=== PATIENT | female | born 1965 | race American Indian/Alaskan Native ===

== ENCOUNTER 2019-03-15 11:55 | Emergency (ER) | payer MEDICAID ==
--- NOTE | 2019-03-15 12:23 | Event Note ---
ED Screening Note Date of service: 03/15/19 Time: 12:13 ED Screening Note: Pt c/o "feeling bad" for 2 weeks - she reports generalized body aches, URI symptoms, including diaphoresis and in past 2-3 days she started with SOB and wheezing. No obvious fever. No hx of lung dz or cardiac dz. +tobacco smoker She has been to [facility] x 3 and [facility] x 1 for her symptoms -- She has had neg strep swabs and at [facility] at labs and CXR all of which were negative. Pt in some respiratory distress in triage with wheezing on exam. This initial assessment/diagnostic orders/clinical plan/treatment(s) is/are subject to change based on patients health status, clinical progression and re- assessment by fellow clinical providers in the ED. Further treatment and workup at subsequent clinical providers discretion. Patient/guardian urged not to elope from the ED as their condition may be serious if not clinically assessed and managed. Initial orders include: labs, cxr duoneb
[2019-03-15] MEDS ORDERED: IPRATROPIUM/ALBUTEROL SULFATE 3 ML AMPUL.NEB IH ONE (12:25)
[2019-03-15] MEDS ORDERED: methylPREDNISolone Sod Succinate 125 MG/2 ML INJ IV ONE (12:25)
--- NOTE | 2019-03-15 13:01 | XRay Report ---
CHEST 2 VIEWS INDICATION / CLINICAL INFORMATION: Shortness of breath and wheezing. COMPARISON: None available. FINDINGS: SUPPORT DEVICES: None. HEART / MEDIASTINUM: The heart size and pulmonary vasculature are normal. LUNGS / PLEURA: No significant pulmonary or pleural abnormality. No pneumothorax. ADDITIONAL FINDINGS: No significant additional findings. IMPRESSION: No acute findings. Signer Name: Francisco Javier Page MD Signed: 03/15/2019 12:56 PM Workstation Name: [id number]
[2019-03-15 13:21] LABS: Hematocrit 39.6 % (30.3-42.9); Hemoglobin 13.6 gm/dl (10.1-14.3); Mean Corpuscular HGB Conc 34 % (30-34); Mean Corpuscular Volume 95 fl (79-97); Platelet Count 240 K/mm3 (140-440); Red Blood Count 4.17 M/mm3 (3.65-5.03); Red Cell Distribution Width 13.1 % (13.2-15.2)
[2019-03-15 13:47] LABS: Alanine Aminotransferase 14 units/L (7-56); Albumin 3.8 g/dL (3.9-5); BUN/Creatinine Ratio 17; Blood Urea Nitrogen 10 mg/dL (7-17); Calcium 8.8 mg/dL (8.4-10.2); Hemolysis Index 8
[2019-03-15 13:52] VITALS: BP 135/75
[2019-03-15 14:46] LABS: Basophils % (Manual) 0 % (0.0-1.8); Platelet Estimate Consistent w Auto; RBC Morphology Normal; Total Cells Counted 100
--- NOTE | 2019-03-15 15:01 | Emergency Department Report ---
ED ENT HPI - General Chief complaint: Weakness Stated complaint: WEAKNESS/SORE THROAT Time Seen by Provider: 03/15/19 12:12 Source: patient, EMS, old records reviewed (patient brought in her discharge summary from [facility]) Mode of arrival: Ambulatory Limitations: No Limitations - History of Present Illness Initial comments: 53-year-old -Danish female presents to the emergency room for sore throat that she's had for 2 weeks. Patient has been seen by [facility] 03/03/2019. Patient was discharged on Mucinex and Medrol Dosepak which patient has not gotten filled. Patient was then seen by [facility] on 03/11/2019 and was discharged home on ibuprofen 800 mg and acetaminophen were hydrocodone 300 mg but did not fill the medication. Patient denies any fever or chills no nausea no vomiting no chest pain or shortness of breath. Onset/Timin -: week(s) Location: throat Severity scale (0 -10): 8 Consistency: intermittent Improves with: none Worsens with: none - Related Data Home Medications Medication Instructions Recorded Confirmed Last Taken Esomeprazole Magnesium [NexIUM] 40 mg PO QDAY 02/15/13 10/21/15 10/20/15 Levothyroxine [Synthroid] 75 mcg PO QAM 02/15/13 10/21/15 10/20/15 Sertraline [Zoloft] 25 mg PO QDAY 02/15/13 10/21/15 10/20/15 Previous Rx's Medication Instructions Recorded Last Taken Type Azithromycin [Zithromax Tri-Obinna] 500 mg PO QDAY #3 tablet 03/15/19 Unknown Rx Allergies Allergy/AdvReac Type Severity Reaction Status Date / Time No Known Allergies Allergy Unverified 02/15/13 09:38 ED Dental HPI - General Chief complaint: Weakness Stated complaint: WEAKNESS/SORE THROAT Time Seen by Provider: 03/15/19 12:12 Source: patient, EMS Mode of arrival: Ambulatory Limitations: No Limitations - Related Data Home Medications Medication Instructions Recorded Confirmed Last Taken Esomeprazole Magnesium [NexIUM] 40 mg PO QDAY 02/15/13 10/21/15 10/20/15 Levothyroxine [Synthroid] 75 mcg PO QAM 02/15/13 10/21/15 10/20/15 Sertraline [Zoloft] 25 mg PO QDAY 02/15/13 10/21/15 10/20/15 Previous Rx's Medication Instructions Recorded Last Taken Type Azithromycin [Zithromax Tri-Obinna] 500 mg PO QDAY #3 tablet 03/15/19 Unknown Rx Allergies Allergy/AdvReac Type Severity Reaction Status Date / Time No Known Allergies Allergy Unverified 02/15/13 09:38 ED Review of Systems ROS: Stated complaint: WEAKNESS/SORE THROAT Other details as noted in HPI Comment: All other systems reviewed and negative ED Past Medical Hx - Past Medical History Hx Hypertension: Yes Hx Congestive Heart Failure: Yes (2009) Hx GERD: Yes - Surgical History Past Surgical History?: Yes Hx Appendectomy: Yes - Social History Smoking Status: Current Some Day Smoker Substance Use Type: None - Medications Home Medications: Home Medications Medication Instructions Recorded Confirmed Last Taken Type Esomeprazole Magnesium [NexIUM] 40 mg PO QDAY 02/15/13 10/21/15 10/20/15 History Levothyroxine [Synthroid] 75 mcg PO QAM 02/15/13 10/21/15 10/20/15 History Sertraline [Zoloft] 25 mg PO QDAY 02/15/13 10/21/15 10/20/15 History Azithromycin [Zithromax Tri-Obinna] 500 mg PO QDAY #3 tablet 03/15/19 Unknown Rx ED Physical Exam - General Limitations: No Limitations General appearance: alert, in no apparent distress - Head Head exam: Present: atraumatic, normocephalic - Eye Eye exam: Present: normal appearance, PERRL, EOMI - ENT ENT exam: Present: mucous membranes moist - Expanded ENT Exam Expanded Mouth exam: Present: normal external inspection Throat exam: Positive: normal inspection. Negative: tonsillar erythema, tonsillomegaly, tonsillar exudate, R peritonsillar mass, L peritonsillar mass - Neck Neck exam: Present: normal inspection. Absent: tenderness, full ROM, lymphadenopathy - Respiratory Respiratory exam: Present: normal lung sounds bilaterally. Absent: respiratory distress - Cardiovascular Cardiovascular Exam: Present: regular rate, normal rhythm. Absent: systolic murmur, diastolic murmur, rubs, gallop - Neurological Exam Neurological exam: Present: alert, oriented X3 - Psychiatric Psychiatric exam: Present: normal affect, normal mood - Skin Skin exam: Present: warm, dry, intact, normal color. Absent: rash ED Course Vital Signs 03/15/19 03/15/19 03/15/19 12:12 13:01 13:15 Temperature 98.2 F Pulse Rate 85 Respiratory 24 Rate Blood Pressure 155/100 135/75 O2 Sat by Pulse 98 100 100 Oximetry 03/15/19 03/15/19 03/15/19 13:31 13:45 14:01 Temperature Pulse Rate Respiratory Rate Blood Pressure 135/75 135/75 135/75 O2 Sat by Pulse 100 100 99 Oximetry 03/15/19 03/15/19 03/15/19 14:15 14:29 14:31 Temperature Pulse Rate 65 56 L Respiratory 19 15 Rate Blood Pressure 135/75 135/75 O2 Sat by Pulse 100 100 95 Oximetry 03/15/19 14:45 Temperature Pulse Rate 57 L Respiratory 16 Rate Blood Pressure 135/75 O2 Sat by Pulse 94 Oximetry ED Medical Decision Making - Lab Data Result diagrams: 03/15/19 13:03 03/15/19 13:03 Laboratory Results - last 72 hr 03/15/19 03/15/19 03/15/19 13:03 13:03 13:03 WBC 7.0 RBC 4.17 Hgb 13.6 Hct 39.6 MCV 95 MCH 33 H MCHC 34 RDW 13.1 L Plt Count 240 Add Manual Diff Complete Total Counted 100 Seg Neuts % (Manual) 42.0 Band Neutrophils % 0 Lymphocytes % (Manual) 50.0 H Reactive Lymphs % (Man) 0 Monocytes % (Manual) 5.0 Eosinophils % (Manual) 3.0 Basophils % (Manual) 0 Metamyelocytes % 0 Myelocytes % 0 Promyelocytes % 0 Blast Cells % 0 Nucleated RBC % Not Reportable Seg Neutrophils # Man 2.9 Band Neutrophils # 0.0 Lymphocytes # (Manual) 3.5 Abs React Lymphs (Man) 0.0 Monocytes # (Manual) 0.4 Eosinophils # (Manual) 0.2 Basophils # (Manual) 0.0 Metamyelocytes # 0.0 Myelocytes # 0.0 Promyelocytes # 0.0 Blast Cells # 0.0 WBC Morphology Not Reportable Hypersegmented Neuts Not Reportable Hyposegmented Neuts Not Reportable Hypogranular Neuts Not Reportable Smudge Cells Not Reportable Toxic Granulation Not Reportable Toxic Vacuolation Not Reportable Dohle Bodies Not Reportable Pelger-Huet Anomaly Not Reportable Janeth Rods Not Reportable Platelet Estimate Consistent w auto Clumped Platelets Not Reportable Plt Clumps, EDTA Not Reportable Large Platelets Not Reportable Giant Platelets Not Reportable Platelet Satelliting Not Reportable Plt Morphology Comment Not Reportable RBC Morphology Normal Dimorphic RBCs Not Reportable Polychromasia Not Reportable Hypochromasia Not Reportable Poikilocytosis Not Reportable Anisocytosis Not Reportable Microcytosis Not Reportable Macrocytosis Not Reportable Spherocytes Not Reportable Pappenheimer Bodies Not Reportable Sickle Cells Not Reportable Target Cells Not Reportable Tear Drop Cells Not Reportable Ovalocytes Not Reportable Helmet Cells Not Reportable Beard-Mcfall Bodies Not Reportable Fillmore Rings Not Reportable Shelbina Cells Not Reportable Bite Cells Not Reportable Crenated Cell Not Reportable Elliptocytes Not Reportable Acanthocytes (Spur) Not Reportable Rouleaux Not Reportable Hemoglobin C Crystals Not Reportable Schistocytes Not Reportable Malaria parasites Not Reportable Stew Bodies Not Reportable Hem Pathologist Commnt No Sodium 140 Potassium 3.8 Chloride 107.8 H Carbon Dioxide 21 L Anion Gap 15 BUN 10 Creatinine 0.6 L Estimated GFR > 60 BUN/Creatinine Ratio 17 Glucose 89 Calcium 8.8 Total Bilirubin 0.30 AST 15 ALT 14 Alkaline Phosphatase 128 Troponin T < 0.010 Total Protein 6.9 Albumin 3.8 L Albumin/Globulin Ratio 1.2 Monoscreen Negative - Radiology Data Radiology results: report reviewed Chest x-ray shows no acute findings - Medical Decision Making 53-year-old -Danish female presents to the emergency room for sore throat that she's had for 2 weeks. Patient has been seen by [facility] 03/03/2019. Patient was discharged on Mucinex and Medrol Dosepak which patient has not gotten filled. Patient was then seen by [facility] on 03/11/2019 and was discharged home on ibuprofen 800 mg and acetaminophen were hydrocodone 300 mg but did not fill the medication. Patient denies any fever or chills no nausea no vomiting no chest pain or shortness of breath. Patient has been evaluated by this provider in the emergency room as well as Dr. Winnie CERVANTES attending. We suggested to patient that she fills her medications and to follow up with her primary care provider which is a [facility]. Patient will be placed on a azithromycin 500 mg by mouth daily 3 days. She verbalized understanding Critical care attestation.: If time is entered above; I have spent that time in minutes in the direct care of this critically ill patient, excluding procedure time. ED Disposition Clinical Impression: Viral pharyngitis Disposition: DC-01 TO HOME OR SELFCARE Is pt being admited?: No Does the pt Need Aspirin: No Condition: Stable Instructions: Pharyngitis (ED) Additional Instructions: Please fill your prescriptions that was given to you by [facility] and [facility] . Follow-up which her primary care provider in the next 2-3 days his symptoms persist or gets worse. Prescriptions: Azithromycin [Zithromax Tri-Obinna] 500 mg PO QDAY #3 tablet Referrals: PRIMARY CARE, [Primary Care Provider] - 3-5 Days [facility] [Outside] - 3-5 Days
== END 2019-03-15 15:29 | disposition home or self-care (01) ==
LOC: ED 11:55
DX: J02.9 Acute pharyngitis, unspecified (principal); I11.0 Hypertensive heart disease with heart failure; I50.9 Heart failure, unspecified; K21.9 Gastro-esophageal reflux disease without esophagitis; F17.200 Nicotine dependence, unspecified, uncomplicated; Z90.49 Acquired absence of other specified parts of digestive tract; Z79.899 Other long term (current) drug therapy
CPT/HCPCS: 36415; 71046; 80053; 84484; 85007; 85025; 86308; 93005; 93010; 94640; 96374; 99284; J2930

== ENCOUNTER 2019-04-19 12:51 | Emergency (ER) | payer MEDICAID ==
[2019-04-19] MEDS ORDERED: CYCLOBENZAPRINE 10 MG TAB PO ONE (13:18)
[2019-04-19] MEDS ORDERED: predniSONE 20 MG TAB PO ONE (13:18)
[2019-04-19] MEDS ORDERED: IBUPROFEN 800 MG TAB PO ONE (13:18)
--- NOTE | 2019-04-19 13:20 | Emergency Department Report ---
ED Abdominal Pain HPI - General Chief Complaint: Back Pain/Injury Stated Complaint: LOW BACK PAIN Time Seen by Provider: 04/19/19 13:17 Source: EMS Mode of arrival: Stretcher Limitations: No Limitations - Related Data Home Medications Medication Instructions Recorded Confirmed Last Taken Esomeprazole Magnesium [NexIUM] 40 mg PO QDAY 02/15/13 10/21/15 10/20/15 Levothyroxine [Synthroid] 75 mcg PO QAM 02/15/13 10/21/15 10/20/15 Sertraline [Zoloft] 25 mg PO QDAY 02/15/13 10/21/15 10/20/15 Previous Rx's Medication Instructions Recorded Last Taken Type Cyclobenzaprine [Flexeril] 10 mg PO TID PRN #10 tablet 04/19/19 Unknown Rx Naproxen [Naprosyn] 500 mg PO BID PRN #20 tablet 04/19/19 Unknown Rx predniSONE [Deltasone] 20 mg PO DAILY #5 tablet 04/19/19 Unknown Rx Allergies Allergy/AdvReac Type Severity Reaction Status Date / Time No Known Allergies Allergy Unverified 02/15/13 09:38 ED Review of Systems ROS: Stated complaint: LOW BACK PAIN Other details as noted in HPI Comment: All other systems reviewed and negative ED Past Medical Hx - Past Medical History Hx Hypertension: Yes Hx CVA: Yes (2009 and 2013) Hx Congestive Heart Failure: Yes (2009) Hx Diabetes: No Hx Deep Vein Thrombosis: No Hx Pulmonary Embolism: No Hx GERD: Yes Hx Liver Disease: No Hx Renal Disease: No Hx of Cancer: No Hx Sickle Cell Disease: No Hx Arthritis: No Hx Headaches / Migraines: No Hx Seizures: No Hx Kidney Stones: No Hx Psychiatric Treatment: No Hx Asthma: No Hx COPD: No Hx Tuberculosis: No Hx Dementia: No Hx HIV: No - Surgical History Past Surgical History?: Yes Hx Appendectomy: Yes - Family History Family history: no significant - Social History Smoking Status: Current Every Day Smoker Substance Use Type: None - Medications Home Medications: Home Medications Medication Instructions Recorded Confirmed Last Taken Type Esomeprazole Magnesium [NexIUM] 40 mg PO QDAY 02/15/13 10/21/15 10/20/15 History Levothyroxine [Synthroid] 75 mcg PO QAM 02/15/13 10/21/15 10/20/15 History Sertraline [Zoloft] 25 mg PO QDAY 02/15/13 10/21/15 10/20/15 History Cyclobenzaprine [Flexeril] 10 mg PO TID PRN #10 tablet 04/19/19 Unknown Rx Naproxen [Naprosyn] 500 mg PO BID PRN #20 tablet 04/19/19 Unknown Rx predniSONE [Deltasone] 20 mg PO DAILY #5 tablet 04/19/19 Unknown Rx ED Physical Exam - General Limitations: No Limitations General appearance: alert, in no apparent distress - Head Head exam: Present: atraumatic, normocephalic - Eye Eye exam: Present: normal appearance - ENT ENT exam: Present: mucous membranes moist - Neck Neck exam: Present: normal inspection - Respiratory Respiratory exam: Present: normal lung sounds bilaterally. Absent: respiratory distress - Cardiovascular Cardiovascular Exam: Present: regular rate, normal rhythm. Absent: systolic murmur, diastolic murmur, rubs, gallop - GI/Abdominal GI/Abdominal exam: Present: soft, tenderness, normal bowel sounds. Absent: distended, guarding, rebound, rigid, diminished bowel sounds, hyperactive bowel sounds, hypoactive bowel sounds, organomegaly, mass, bruit, pulsatile mass - Extremities Exam Extremities exam: Present: normal inspection - Back Exam Back exam: Present: normal inspection, other (POS STRAIGHT LEG RAISE R > l) - Neurological Exam Neurological exam: Present: alert, oriented X3 - Psychiatric Psychiatric exam: Present: normal affect, normal mood - Skin Skin exam: Present: warm, dry, intact, normal color. Absent: rash ED Course Vital Signs 04/19/19 04/19/19 13:00 13:11 Temperature 97.9 F 97.9 F Pulse Rate 72 72 Respiratory 18 18 Rate Blood Pressure 115/68 Blood Pressure 115/68 [Left] O2 Sat by Pulse 98 98 Oximetry ED Medical Decision Making - Lab Data Result diagrams: 04/19/19 14:01 04/19/19 14:01 - Medical Decision Making Labs 04/19/19 04/19/19 04/19/19 14:01 14:01 Unknown WBC 5.4 RBC 4.30 Hgb 14.0 Hct 42.5 MCV 99 H MCH 33 H MCHC 33 RDW 12.9 L Plt Count 238 Sodium 140 Potassium 3.8 Chloride 109.1 H Carbon Dioxide 22 Anion Gap 13 BUN 12 Creatinine 0.7 Estimated GFR > 60 BUN/Creatinine Ratio 17 Glucose 98 Calcium 8.8 Urine Color Yellow Urine Turbidity Clear Urine pH 5.0 Ur Specific [place] 1.029 Urine Protein <15 mg/dl Urine Glucose (UA) Neg Urine Ketones Neg Urine Blood Neg Urine Nitrite Neg Urine Bilirubin Neg Urine Urobilinogen 2.0 Ur Leukocyte Esterase Neg Urine WBC (Auto) 1.0 Urine RBC (Auto) 2.0 U Epithel Cells (Auto) 1.0 Urine Bacteria (Auto) 1+ Urine Mucus Few Vital Signs 04/19/19 04/19/19 13:00 13:11 Temperature 97.9 F 97.9 F Pulse Rate 72 72 Respiratory 18 18 Rate Blood Pressure 115/68 Blood Pressure 115/68 [Left] O2 Sat by Pulse 98 98 Oximetry Critical care attestation.: If time is entered above; I have spent that time in minutes in the direct care of this critically ill patient, excluding procedure time. ED Disposition Clinical Impression: Low back pain, Radiculopathy Disposition: TO HOME OR SELFCARE Is pt being admited?: No Does the pt Need Aspirin: No Condition: Stable Instructions: Low Back Strain (ED) Additional Instructions: MEDS ORDERED TODAY ACTIVITY AND DIET TOLERATED FOLLOW UP WITH DR SMITH FOR ONGOING PAIN AND EVALUATION Referrals: PETER MOREJON MD [Primary Care Provider] - 3-5 Days BRITNI SMITH MD [Staff Physician] - 3-5 Days Time of Disposition: 15:32
[2019-04-19 14:24] LABS: Hematocrit 42.5 % (30.3-42.9); Mean Corpuscular HGB Conc 33 % (30-34); Mean Corpuscular Volume 99 fl (79-97); Platelet Count 238 K/mm3 (140-440); Red Cell Distribution Width 12.9 % (13.2-15.2)
[2019-04-19 14:39] LABS: BUN/Creatinine Ratio 17; Blood Urea Nitrogen 12 mg/dL (7-17); Calcium 8.8 mg/dL (8.4-10.2); Hemolysis Index 25
[2019-04-19 15:14] LABS: Bacteria,Urine 1+ /HPF (Negative); Bilirubin,Urine NEG (Negative); Blood,Urine NEG (Negative); Color,Urine Yellow (Yellow); Mucus,Urine FEW /HPF; Protein,Urine <15 mg/dL mg/dL (Negative)
[2019-04-19] MEDS ORDERED: ACETAMINOPHEN 500 MG TAB PO ONE (16:35)
[2019-04-19 16:56] VITALS: BP 134/96
== END 2019-04-19 16:55 | disposition home or self-care (01) ==
LOC: ED 12:51
DX: M54.16 Radiculopathy, lumbar region (principal); I11.0 Hypertensive heart disease with heart failure; I50.9 Heart failure, unspecified; K21.9 Gastro-esophageal reflux disease without esophagitis; F17.200 Nicotine dependence, unspecified, uncomplicated; Z86.73 Personal history of transient ischemic attack (TIA), and cerebral infarction without residual deficits; Z79.899 Other long term (current) drug therapy
CPT/HCPCS: 36415; 80048; 81001; 85027; 99284; J7512

== ENCOUNTER 2020-07-14 16:22 | Observation (INO) | payer MEDICAID ==
--- NOTE | 2020-07-14 16:45 | Emergency Department Report ---
ED Chest Pain HPI - General Stated Complaint: CP PUI?: No Time Seen by Provider: 07/14/20 16:37 Source: patient, EMS Mode of arrival: Stretcher Limitations: No Limitations - History of Present Illness Initial Comments: Chief complaint: Chest pain HPI: This is a 55-year-old female with history of CVA, hypothyroidism, tobacco dependence, depression, hypertension, GERD who presents with sudden onset of left-sided chest pain radiating from the epigastrium under breasts to her back. The pain began suddenly while she was driving a car with her grandchild. The pain was so severe it caused her to mandrel puller twice. After she finally made it home. EMS was called to her home for transport. Patient took 81 mg aspirin at home. EMS also gave her aspirin. Pain is sharp and squeezing in nature. It is intermittent. However the pain is severe 10 out of 10. The pain episodes last minutes at a time. Patient was in her normal state of health this morning. Patient has not had chest pain before. She does not have a history of cardiac disease. However she does have extensive family history of cardiac disease. Mother age 42 suddenly likely of cardiac causes. Patient father at the age of 69 with history of cardiac disease. Patient is followed at [facility]. Patient has had several surgeries Patient takes Synthroid and antidepressant medication. She does not take any other medications. MD Complaint: chest pain -: Sudden, This afternoon Onset: during rest, during exertion, other (While driving) Pain Location: left chest, epigastric Pain Radiation: back Severity: severe Severity scale (0 -10): 10 Quality: sharp, squeezing Consistency: intermittent Improves With: nothing Worsens With: nothing Treatments Prior to Arrival: aspirin - Related Data Home Medications Medication Instructions Recorded Confirmed Last Taken Esomeprazole Magnesium [NexIUM] 40 mg PO QDAY 02/15/13 10/21/15 10/20/15 Levothyroxine [Synthroid] 75 mcg PO QAM 02/15/13 10/21/15 10/20/15 Sertraline [Zoloft] 25 mg PO QDAY 02/15/13 10/21/15 10/20/15 Previous Rx's Medication Instructions Recorded Last Taken Type Cyclobenzaprine [Flexeril] 10 mg PO TID PRN #10 tablet 04/19/19 Unknown Rx Naproxen [Naprosyn] 500 mg PO BID PRN #20 tablet 04/19/19 Unknown Rx predniSONE [Deltasone] 20 mg PO DAILY #5 tablet 04/19/19 Unknown Rx Allergies Allergy/AdvReac Type Severity Reaction Status Date / Time No Known Allergies Allergy Unverified 02/15/13 09:38 Heart Score - HEART Score History: Highly suspicious EKG: Normal Age: 45-65 Risk factors: 1-2 risk factors Troponin: < normal limit HEART Score: 4 ED Review of Systems ROS: Stated complaint: CP Other details as noted in HPI Comment: All other systems reviewed and negative Constitutional: denies: fever, malaise Respiratory: denies: cough, shortness of breath Cardiovascular: chest pain Gastrointestinal: denies: abdominal pain, nausea, vomiting ED Past Medical Hx - Past Medical History Previous Medical History?: Yes Hx Hypertension: Yes Hx CVA: Yes (2009 and 2013) Hx Congestive Heart Failure: Yes (2009) Hx Diabetes: No Hx Deep Vein Thrombosis: No Hx Pulmonary Embolism: No Hx GERD: Yes Hx Liver Disease: No Hx Renal Disease: No Hx Sickle Cell Disease: No Hx Arthritis: No Hx Headaches / Migraines: No Hx Seizures: No Hx Kidney Stones: No Hx Psychiatric Treatment: No Hx Asthma: No Hx COPD: No Hx Tuberculosis: No Hx Dementia: No Hx HIV: No - Surgical History Past Surgical History?: Yes Hx Appendectomy: Yes - Social History Smoking Status: Current Every Day Smoker Substance Use Type: None - Medications Home Medications: Home Medications Medication Instructions Recorded Confirmed Last Taken Type Esomeprazole Magnesium [NexIUM] 40 mg PO QDAY 02/15/13 10/21/15 10/20/15 History Levothyroxine [Synthroid] 75 mcg PO QAM 02/15/13 10/21/15 10/20/15 History Sertraline [Zoloft] 25 mg PO QDAY 02/15/13 10/21/15 10/20/15 History Cyclobenzaprine [Flexeril] 10 mg PO TID PRN #10 tablet 04/19/19 Unknown Rx Naproxen [Naprosyn] 500 mg PO BID PRN #20 tablet 04/19/19 Unknown Rx predniSONE [Deltasone] 20 mg PO DAILY #5 tablet 04/19/19 Unknown Rx ED Physical Exam - General General appearance: alert, anxious, other (Patient is restless unable to stay still due to discomfort) - Head Head exam: Present: atraumatic, normocephalic - Eye Eye exam: Present: normal appearance - ENT ENT exam: Present: mucous membranes moist - Neck Neck exam: Present: normal inspection, full ROM - Respiratory Respiratory exam: Present: normal lung sounds bilaterally. Absent: respiratory distress, wheezes, rales, rhonchi - Cardiovascular Cardiovascular Exam: Present: regular rate, normal rhythm, normal heart sounds. Absent: systolic murmur, diastolic murmur, rubs, gallop - GI/Abdominal GI/Abdominal exam: Present: soft, normal bowel sounds. Absent: distended, tenderness, guarding, rebound - Extremities Exam Extremities exam: Present: normal inspection - Neurological Exam Neurological exam: Present: alert, oriented X3 - Psychiatric Psychiatric exam: Present: normal affect, anxious - Skin Skin exam: Present: warm, dry, intact, normal color. Absent: rash ED Course Vital Signs 07/14/20 07/14/20 07/14/20 16:34 16:51 16:55 Temperature 98.4 F Pulse Rate 85 70 Respiratory 22 22 14 Rate Blood Pressure 134/83 O2 Sat by Pulse 96 96 95 Oximetry 07/14/20 07/14/20 07/14/20 17:00 17:08 17:16 Temperature Pulse Rate 67 72 74 Respiratory 23 19 Rate Blood Pressure 125/77 115/76 O2 Sat by Pulse 97 95 Oximetry 07/14/20 07/14/20 07/14/20 17:30 17:36 17:46 Temperature Pulse Rate 66 61 62 Respiratory 23 24 Rate Blood Pressure 125/81 130/79 122/80 O2 Sat by Pulse 92 97 Oximetry 07/14/20 07/14/20 07/14/20 18:00 18:15 18:16 Temperature Pulse Rate 70 63 64 Respiratory 20 23 Rate Blood Pressure 118/81 128/81 128/81 O2 Sat by Pulse 95 99 Oximetry 07/14/20 07/14/20 18:34 19:00 Temperature Pulse Rate 73 73 Respiratory 16 15 Rate Blood Pressure 128/81 124/78 O2 Sat by Pulse 98 Oximetry ED Medical Decision Making - Lab Data Result diagrams: 07/14/20 16:59 07/14/20 16:59 Laboratory Results - last 24 hr 07/14/20 07/14/20 07/14/20 16:59 16:59 16:59 WBC 6.9 RBC 4.23 Hgb 13.7 Hct 40.7 MCV 96 MCH 32 MCHC 34 RDW 13.7 Plt Count 271 Lymph % (Auto) 32.1 [place] % (Auto) 10.0 H Eos % (Auto) 0.5 Baso % (Auto) 0.5 Lymph # (Auto) 2.2 [place] # (Auto) 0.7 Eos # (Auto) 0.0 Baso # (Auto) 0.0 Seg Neutrophils % 56.9 Seg Neutrophils # 3.9 D-Dimer 191.28 Sodium 140 Potassium 3.7 Chloride 106.4 Carbon Dioxide 26 Anion Gap 11 BUN 11 Creatinine 0.7 Estimated GFR > 60 BUN/Creatinine Ratio 16 Glucose 103 H Calcium 8.9 Total Bilirubin 0.20 AST 14 ALT 10 Alkaline Phosphatase 130 H Troponin T < 0.010 Total Protein 6.6 Albumin 3.9 Albumin/Globulin Ratio 1.4 - EKG Data -: EKG Interpreted by Az EKG shows normal: sinus rhythm, axis, intervals, QRS complexes, ST-T waves Rate: normal - EKG Data Interpretation: normal EKG 07/14/20 16:45 First EKG obtained 1638 EKG interpreted by mn Normal sinus rhythm rate 75 bpm normal axis normal intervals no ST-T sign ischemia normal T wave pattern normal EKG no Q waves present 07/14/20 18:37 Second EKG obtained 1829 EKG interpreted by mn Normal sinus rhythm rate 70 bpm normal axis normal intervals no ST-T sign ischemia no change from the previous EKG obtained on this ED encounter - Radiology Data Radiology results: report reviewed CHEST 1 VIEW INDICATION: Chest Pain. COMPARISON: 03/15/2019 FINDINGS: Support devices: None. Heart: Normal. Lungs/Pleura: No acute pulmonary or pleural findings. IMPRESSION: 1. No acute findings. - Medical Decision Making Ms. Costa presents with epigastric pain radiating to the left chest left flank: Due to significant family history of severe cardiac disease, I was concerned for acute coronary syndrome. Patient had significant discomfort. Nitroglycerin did greatly improve her symptoms. However symptoms returned after third dose of nitroglycerin. Differential diagnosis includes esophageal spasm, acute pancreatitis lipase was added to the work-up. Peptic ulcer disease biliary colic or other considerations. D-dimer within normal limits. EKG x2 without changes. Troponin x2 both within normal limits. Heart score 4. Patient admitted to hospitalist service. Critical Care Time: Yes Critical care time in (mins) excluding proc time.: 40 Critical care attestation.: If time is entered above; I have spent that time in minutes in the direct care of this critically ill patient, excluding procedure time. 40 minutes of critical care time excluding procedures were used in the care of the patient. I came immediately to the bedside upon patient's arrival. I obtained history from EMS at the bedside. I discussed treatment plan with the nursing team members. I reviewed electronic record. I was concerned for acute coronary syndrome. Patient was in severe pain in distress upon arrival. Patient required multiple interventions and reassessments. ED Disposition Clinical Impression: Acute coronary syndrome Disposition: [id number] OP ADMIT IP TO THIS HOSP Is pt being admited?: Yes Does the pt Need Aspirin: No Condition: Stable
--- NOTE | 2020-07-14 17:06 | XRay Report ---
CHEST 1 VIEW INDICATION: Chest Pain. COMPARISON: 03/15/2019 FINDINGS: Support devices: None. Heart: Normal. Lungs/Pleura: No acute pulmonary or pleural findings. IMPRESSION: 1. No acute findings. Signer Name: Thor Cook MD Signed: 07/14/2020 5:01 PM Workstation Name: [id number]
[2020-07-14] MEDS: NITROGLYCERIN 0.4 MG TAB SUBL SL PRN ×3 (17:08→18:15)
[2020-07-14 17:16] LABS: Basophils % (Auto) 0.5 % (0.0-1.8); Eosinophils % (Auto) 0.5 % (0.0-4.3); Hematocrit 40.7 % (30.3-42.9); Hemoglobin 13.7 gm/dl (10.1-14.3); Lymphocytes # (Auto) 2.2 K/mm3 (1.2-5.4); Lymphocytes % (Auto) 32.1 % (13.4-35.0); Mean Corpuscular HGB Conc 34 % (30-34); Mean Corpuscular Volume 96 fl (79-97); Monocytes # (Auto) 0.7 K/mm3 (0.0-0.8); Platelet Count 271 K/mm3 (140-440); Red Blood Count 4.23 M/mm3 (3.65-5.03); Red Cell Distribution Width 13.7 % (13.2-15.2)
[2020-07-14 17:33] LABS: Alanine Aminotransferase 10 units/L (7-56); Albumin 3.9 g/dL (3.9-5); Blood Urea Nitrogen 11 mg/dL (7-17); Calcium 8.9 mg/dL (8.4-10.2); Hemolysis Index 36
[2020-07-14 17:38] LABS: BUN/Creatinine Ratio 16
[2020-07-14] MEDS ORDERED: MORPHINE 4 MG/1 ML INJ IV ONE ×2 (18:47→19:45)
[2020-07-14 19:27] LABS: Amphetamine Screen,Urine Negative; Benzodiazepines Screen,Urine Negative; Cannabinoid Screen,Urine Negative; Cocaine Screen,Urine Negative; Methadone Screen,Urine Negative; Opiate Screen,Urine Negative
[2020-07-14 19:29] LABS: Bilirubin,Urine NEG (Negative); Blood,Urine NEG (Negative); Color,Urine Yellow (Yellow); Mucus,Urine FEW /HPF; Protein,Urine <15 mg/dL mg/dL (Negative); Urobilinogen,Urine < 2.0 mg/dL (<2.0)
[2020-07-14] MEDS ORDERED: ALUM-MAG HYDROXIDE-SIMETHICONE 200-200-20MG/5ML ORAL LIQD 30 ML PO ONE (19:44)
[2020-07-14] MEDS ORDERED: LIDOCAINE VISCOUS 2% 15 ML ORAL LIQD PO ONE (19:44)
[2020-07-14] MEDS ORDERED: PANTOPRAZOLE 40 MG INJ IV ONE (19:45)
[2020-07-14] MEDS ORDERED: NAPROXEN 500 MG TAB PO PRN (22:04)
[2020-07-14] MEDS ORDERED: CYCLOBENZAPRINE 10 MG TAB PO PRN (22:04)
[2020-07-14] MEDS ORDERED: METOCLOPRAMIDE 10 MG/2 ML INJ IV PRN (22:07)
[2020-07-14] MEDS ORDERED: oxyCODONE /ACETAMINOPHEN 5-325MG TAB PO PRN (22:07)
[2020-07-14] MEDS ORDERED: HYDROmorphone 1 MG/1 ML INJ IV PRN (22:07)
[2020-07-14] MEDS ORDERED: ACETAMINOPHEN 325 MG TAB PO PRN (22:07)
[2020-07-14] MEDS ORDERED: ONDANSETRON 4 MG/2 ML INJ IV PRN (22:07)
[2020-07-14] MEDS ORDERED: HEPARIN 5,000 UNIT/1 ML VIAL SUB-Q SCH (22:15)
--- NOTE | 2020-07-14 22:16 | History and Physical Report ---
History of Present Illness Date of examination: 07/14/20 Date of admission: 07/14/20 19:48 Chief complaint: Severe chest pain for 1 day History of present illness: Hypothyroidism, CVA, depression, nicotine dependence and hypertension presents with retrosternal chest pain radiating to her back since morning. Pain began suddenly when she was [place] with her grandchild. Patient the pain was so severe that it caused her to plant puller twice. Pain is retrosternal and precordial. No radiation. No diaphoresis or shortness of breath. Patient reached home and called the EMS for transportation. Patient was given 81 mg of aspirin. No exacerbating or relieving factors. No history of any cardiac disease or stents. Patient on Synthroid for hypothyroidism. Heart Score - HEART Score History: Highly suspicious EKG: Normal Age: 45-65 Risk factors: 1-2 risk factors Troponin: < normal limit HEART Score: 4 - Past Medical History Previous Medical History?: Yes --Hypertension: Yes --CVA: Yes (2009 and 2013) --Congestive Heart Failure: Yes (2009) --GERD: Yes - Surgical History Past Surgical History?: Yes --Appendectomy: Yes - Social History Smoking Status: Current Every Day Smoker Substance Use Type: None - Medications Home Medications: Home Medications Medication Instructions Recorded Confirmed Last Taken Type Esomeprazole Magnesium [NexIUM] 40 mg PO QDAY 02/15/13 10/21/15 10/20/15 History Levothyroxine [Synthroid] 75 mcg PO QAM 02/15/13 10/21/15 10/20/15 History Sertraline [Zoloft] 25 mg PO QDAY 02/15/13 10/21/15 10/20/15 History Cyclobenzaprine [Flexeril] 10 mg PO TID PRN #10 tablet 04/19/19 Unknown Rx Naproxen [Naprosyn] 500 mg PO BID PRN #20 tablet 04/19/19 Unknown Rx predniSONE [Deltasone] 20 mg PO DAILY #5 tablet 04/19/19 Unknown Rx Review of Systems ROS: Stated complaint: CP Other details as noted in HPI Comment: All other systems reviewed and negative Constitutional: denies: fever, malaise Respiratory: denies: cough, shortness of breath Cardiovascular: chest pain Gastrointestinal: denies: abdominal pain, nausea, vomiting Medications and Allergies Allergies Allergy/AdvReac Type Severity Reaction Status Date / Time No Known Allergies Allergy Unverified 02/15/13 09:38 Home Medications Medication Instructions Recorded Confirmed Last Taken Type Esomeprazole Magnesium [NexIUM] 40 mg PO QDAY 02/15/13 07/14/20 10/20/15 History Levothyroxine [Synthroid] 75 mcg PO QAM 02/15/13 07/14/20 10/20/15 History Sertraline [Zoloft] 25 mg PO QDAY 02/15/13 07/14/20 10/20/15 History Cyclobenzaprine [Flexeril] 10 mg PO TID PRN #10 tablet 04/19/19 07/14/20 Unknown Rx Naproxen [Naprosyn] 500 mg PO BID PRN #20 tablet 04/19/19 07/14/20 Unknown Rx predniSONE [Deltasone] 20 mg PO DAILY #5 tablet 04/19/19 07/14/20 Unknown Rx Active Meds: Active Medications Nitroglycerin (Nitroglycerin 0.4 Mg Tab Subl) 0.4 mg SL .Q5MIN PRN PRN Reason: Chest Pain Last Admin: 07/14/20 18:15 Dose: 0.4 mg Documented by: Exam - Constitutional Vitals: Temp Pulse Resp BP Pulse Ox 98.4 F 64 21 138/86 96 07/14/20 16:34 07/14/20 19:30 07/14/20 19:30 07/14/20 20:16 07/14/20 20:16 General appearance: Present: no acute distress, well-nourished - EENT Eyes: Present: PERRL ENT: hearing intact, clear oral mucosa - Neck Neck: Present: supple, normal ROM - Respiratory Respiratory effort: normal Respiratory: bilateral: CTA - Cardiovascular Heart rate: 78 Rhythm: regular Heart Sounds: Present: S1 & S2. Absent: rub, click - Extremities Extremities: pulses symmetrical, No edema Peripheral Pulses: within normal limits - Abdominal General gastrointestinal: Present: soft, non-tender, non-distended, normal bowel sounds Female genitourinary: Present: normal - Integumentary Integumentary: Present: clear, warm, dry - Musculoskeletal Musculoskeletal: gait normal, strength equal bilaterally - Psychiatric Psychiatric: appropriate mood/affect, intact judgment & insight - Neurologic Neurologic: CNII-XII intact, moves all extremities HEART Score - HEART Score EKG: Normal Age: 45-65 Risk factors: 1-2 risk factors Troponin: Troponin T < 0.010 ng/mL (0.00-0.029) 07/14/20 19:03 Troponin: < normal limit Results - Labs CBC & Chem 7: 07/14/20 16:59 02 16:59 Labs: Laboratory Last Values WBC 6.9 K/mm3 (4.5-11.0) 07/14/20 16:59 RBC 4.23 M/mm3 (3.65-5.03) 07/14/20 16:59 Hgb 13.7 gm/dl (10.1-14.3) 07/14/20 16:59 Hct 40.7 % (30.3-42.9) 07/14/20 16:59 MCV 96 fl (79-97) 07/14/20 16:59 MCH 32 pg (28-32) 07/14/20 16:59 MCHC 34 % (30-34) 07/14/20 16:59 RDW 13.7 % (13.2-15.2) 07/14/20 16:59 Plt Count 271 K/mm3 (140-440) 07/14/20 16:59 Lymph % (Auto) 32.1 % (13.4-35.0) 07/14/20 16:59 [place] % (Auto) 10.0 % (0.0-7.3) H 07/14/20 16:59 Eos % (Auto) 0.5 % (0.0-4.3) 07/14/20 16:59 Baso % (Auto) 0.5 % (0.0-1.8) 07/14/20 16:59 Lymph # (Auto) 2.2 K/mm3 (1.2-5.4) 07/14/20 16:59 [place] # (Auto) 0.7 K/mm3 (0.0-0.8) 07/14/20 16:59 Eos # (Auto) 0.0 K/mm3 (0.0-0.4) 07/14/20 16:59 Baso # (Auto) 0.0 K/mm3 (0.0-0.1) 07/14/20 16:59 Seg Neutrophils % 56.9 % (40.0-70.0) 07/14/20 16:59 Seg Neutrophils # 3.9 K/mm3 (1.8-7.7) 07/14/20 16:59 D-Dimer 191.28 ng/mlDDU (0-234) 07/14/20 16:59 Sodium 140 mmol/L (137-145) 07/14/20 16:59 Potassium 3.7 mmol/L (3.6-5.0) 07/14/20 16:59 Chloride 106.4 mmol/L (98-107) 07/14/20 16:59 Carbon Dioxide 26 mmol/L (22-30) 07/14/20 16:59 Anion Gap 11 mmol/L 07/14/20 16:59 BUN 11 mg/dL (7-17) 07/14/20 16:59 Creatinine 0.7 mg/dL (0.6-1.2) 07/14/20 16:59 Estimated GFR > 60 ml/min 07/14/20 16:59 BUN/Creatinine Ratio 16 % 07/14/20 16:59 Glucose 103 mg/dL (65-100) H 07/14/20 16:59 Calcium 8.9 mg/dL (8.4-10.2) 07/14/20 16:59 Total Bilirubin 0.20 mg/dL (0.1-1.2) 07/14/20 16:59 AST 14 units/L (5-40) 07/14/20 16:59 ALT 10 units/L (7-56) 07/14/20 16:59 Alkaline Phosphatase 130 units/L (35-129) H 07/14/20 16:59 Troponin T < 0.010 ng/mL (0.00-0.029) 07/14/20 19:03 Total Protein 6.6 g/dL (6.3-8.2) 07/14/20 16:59 Albumin 3.9 g/dL (3.9-5) 07/14/20 16:59 Albumin/Globulin Ratio 1.4 % 07/14/20 16:59 Lipase 21 units/L (13-60) 07/14/20 Unknown Urine Color Yellow (Yellow) 07/14/20 18:48 Urine Turbidity Slightly-cloudy (Clear) 07/14/20 18:48 Urine pH 6.0 (5.0-7.0) 07/14/20 18:48 Ur Specific [place] 1.019 (1.003-1.030) 07/14/20 18:48 Urine Protein <15 mg/dl mg/dL (Negative) 07/14/20 18:48 Urine Glucose (UA) Neg mg/dL (Negative) 07/14/20 18:48 Urine Ketones Neg mg/dL (Negative) 07/14/20 18:48 Urine Blood Neg (Negative) 07/14/20 18:48 Urine Nitrite Neg (Negative) 07/14/20 18:48 Urine Bilirubin Neg (Negative) 07/14/20 18:48 Urine Urobilinogen < 2.0 mg/dL (<2.0) 07/14/20 18:48 Ur Leukocyte Esterase Neg (Negative) 07/14/20 18:48 Urine WBC (Auto) 2.0 /HPF (0.0-6.0) 07/14/20 18:48 Urine RBC (Auto) 1.0 /HPF (0.0-6.0) 07/14/20 18:48 U Epithel Cells (Auto) 4.0 /HPF (0-13.0) 07/14/20 18:48 Urine Mucus Few /HPF 07/14/20 18:48 Urine Opiates Screen Negative 07/14/20 18:48 Urine Methadone Screen Negative 07/14/20 18:48 Ur Barbiturates Screen Negative 07/14/20 18:48 Ur Phencyclidine Scrn Negative 07/14/20 18:48 Ur Amphetamines Screen Negative 07/14/20 18:48 U Benzodiazepines Scrn Negative 07/14/20 18:48 Urine Cocaine Screen Negative 07/14/20 18:48 U Marijuana (THC) Screen Negative 07/14/20 18:48 Drugs of Abuse Note Disclamer 07/14/20 18:48 Short CBC 07/14/20 Range/Units 16:59 WBC 6.9 (4.5-11.0) K/mm3 Hgb 13.7 (10.1-14.3) gm/dl Hct 40.7 (30.3-42.9) % Plt Count 271 (140-440) K/mm3 BMP 07/14/20 16:59 Sodium 140 Potassium 3.7 Chloride 106.4 Carbon Dioxide 26 BUN 11 Creatinine 0.7 Glucose 103 H Calcium 8.9 Cardiac Enzymes 07/14/20 07/14/20 07/15/20 Range/Units 16:59 19:03 03:31 Total Creatine Kinase 65 (30-135) units/L CK-MB (CK-2) < 1.0 (0.0-4.0) ng/mL Troponin T < 0.010 < 0.010 (0.00-0.029) ng/mL Liver Function 07/14/20 Range/Units 16:59 Total Bilirubin 0.20 (0.1-1.2) mg/dL AST 14 (5-40) units/L ALT 10 (7-56) units/L Alkaline Phosphatase 130 H (35-129) units/L Albumin 3.9 (3.9-5) g/dL Urine 07/14/20 Range/Units 18:48 Urine Color Yellow (Yellow) Urine pH 6.0 (5.0-7.0) Ur Specific [place] 1.019 (1.003-1.030) Urine Protein <15 mg/dl (Negative) mg/dL Urine Glucose (UA) Neg (Negative) mg/dL - Imaging and Cardiology EKG: report reviewed Assessment and Plan Advance Directives: Yes (Full code) VTE prophylaxis?: Chemical Plan of care discussed with patient/family: Yes - Patient Problems (1) Acute coronary syndrome Current Visit: Yes Status: Acute Plan to address problem: Serial troponins and CK-MB CK-MB is more specific Stress test with exercise treadmill if patient can tolerate it. If not changed to Lexiscan. Costochondritis in differential diagnosis (2) Hypothyroidism Current Visit: Yes Status: Chronic Qualifiers: Hypothyroidism type: acquired Qualified Code(s): E03.9 - Hypothyroidism, unspecified Plan to address problem: Continue Synthroid at 75 mcg every day Check TSH (3) Muscle spasm Current Visit: Yes Status: Chronic Plan to address problem: Continue Flexeril (4) GERD (gastroesophageal reflux disease) Current Visit: Yes Status: Chronic Qualifiers: Esophagitis presence: without esophagitis Qualified Code(s): K21.9 - Gastro -esophageal reflux disease without esophagitis Plan to address problem: Continue PPIs (5) DVT prophylaxis Current Visit: Yes Status: Acute Plan to address problem: On heparin and GI prophylaxis
[2020-07-14] MEDS: HEPARIN 5,000 UNIT/1 ML VIAL SUB-Q SCH (22:31)
[2020-07-15 04:59] LABS: Creatine Kinase MB < 1.0 ng/mL (0.0-4.0)
[2020-07-15] MEDS: LEVOTHYROXINE 75 MCG TAB PO SCH (06:37)
[2020-07-15] MEDS ORDERED: REGADENOSON 0.4 MG/5 ML INJ IV ONE (08:51)
[2020-07-15] MEDS ORDERED: predniSONE 20 MG TAB PO SCH (10:00)
[2020-07-15] MEDS ORDERED: NON-FORMULARY EACH (Esomeprazole Magnesium [Nexium] 40 MG Capsule.Dr) PO SCH (10:00)
[2020-07-15] MEDS: PANTOPRAZOLE 40 MG TAB PO SCH (10:36)
[2020-07-15] MEDS: SERTRALINE 25 MG TAB PO SCH (10:37)
[2020-07-15] MEDS: HEPARIN 5,000 UNIT/1 ML VIAL SUB-Q SCH ×2 (10:38→22:01)
[2020-07-15 11:25] LABS: Creatine Kinase MB < 1.0 ng/mL (0.0-4.0)
--- NOTE | 2020-07-15 19:10 | Discharge Summary ---
Providers - Providers Date of Admission: 07/14/20 19:48 Date of discharge: 07/15/20 Attending physician: VU MONTANEZ Primary care physician: SHADIA DING MD Hospitalization Condition: Good Hospital course: 55-year-old female admitted for atypical chest pain. After evaluation of pain today appeared to be consistent with costochondritis. Patient has a soreness and ache in mid sternal area that is reproducible with palpation. Patient denies any radiation, denies shortness of breath no dyspnea on exertion. Stress test results returned today 7:06 PM. Stable for discharge. Disposition: TO HOME OR SELFCARE - Discharge Diagnoses (1) Chest pain Status: Acute Comment: Chest pain consistent with costochondritis. Will discharge patient with Naprosyn twice daily for continued treatment was inset was initiated upon presentation. Patient negative isoenzymes, negative stress test. Negative unremarkable EKG. (2) Muscle spasm Status: Chronic Comment: Still most likely costochondritis. Core Measure Documentation - Palliative Care Palliative Care/ Comfort Measures: Not Applicable - Core Measures Any of the following diagnoses?: none Exam - Constitutional Vitals: Temp Pulse Resp BP Pulse Ox 98.5 F 60 18 116/63 99 07/15/20 14:57 07/15/20 16:38 07/15/20 14:57 07/15/20 14:57 07/15/20 14:57 General appearance: Present: no acute distress, well-nourished - EENT Eyes: Present: PERRL ENT: hearing intact, clear oral mucosa - Neck Neck: Present: supple, normal ROM - Respiratory Respiratory effort: normal Respiratory: bilateral: CTA - Cardiovascular Rhythm: other (Reproducible chest pain sternum.) Heart Sounds: Present: S1 & S2. Absent: rub, click - Extremities Extremities: pulses symmetrical, No edema Peripheral Pulses: within normal limits - Abdominal General gastrointestinal: Present: soft, non-tender, non-distended, normal bowel sounds Female genitourinary: Present: normal - Integumentary Integumentary: Present: clear, warm, dry - Musculoskeletal Musculoskeletal: gait normal, strength equal bilaterally - Psychiatric Psychiatric: appropriate mood/affect, intact judgment & insight - Neurologic Neurologic: CNII-XII intact, moves all extremities Plan Activity: no restrictions Weight Bearing Status: Full Weight Bearing Diet: low cholesterol Follow up with: PRIMARY CAREMD [Primary Care Provider] - 7 Days Prescriptions: Naproxen [Naprosyn TAB] 500 mg PO BID PRN #20 tablet PRN Reason: Pain Pantoprazole [Protonix TAB] 40 mg PO DAILY #14 tablet
--- NOTE | 2020-07-15 21:42 | Treadmill Report ---
The patient is a 55-year-old female who underwent a treadmill stress test following the Zhen protocol. The patient exercised for 9 minutes and 26 seconds and achieved 85% of her predicted maximal heart rate, i.e. 142 beats per minute. There is no chest pain or ischemic electrocardiographic changes. IMPRESSION: Negative treadmill stress test. JOB# [id number] ALANA/NTS
[2020-07-15] MEDS ORDERED: diphenhydrAMINE 25 MG CAP PO PRN (22:23)
[2020-07-16] MEDS: LEVOTHYROXINE 75 MCG TAB PO SCH (05:25)
--- NOTE | 2020-07-16 10:05 | Event Note ---
Date: 07/16/20 Patient seen and examined. Patient was scheduled for discharge yesterday but did not discharge due to lack of transportation. Patient reportedly able to discharge this morning. Total visit time equals 15 minutes with greater than 50% of care spent on coordination and counseling
[2020-07-16] MEDS: PANTOPRAZOLE 40 MG TAB PO SCH (10:07)
[2020-07-16] MEDS: SERTRALINE 25 MG TAB PO SCH (10:07)
[2020-07-16] MEDS: HEPARIN 5,000 UNIT/1 ML VIAL SUB-Q SCH (10:08)
[2020-07-16 12:15] VITALS: BP 134/84
== END 2020-07-16 13:00 | disposition home or self-care (01) ==
LOC: ED 16:22 → 4A 19:48
PROVIDERS: ADMIT Internal Medicine; ATTEND Hospitalist
DX: I24.9 Acute ischemic heart disease, unspecified (principal); E03.9 Hypothyroidism, unspecified; K21.9 Gastro-esophageal reflux disease without esophagitis; I11.0 Hypertensive heart disease with heart failure; I50.9 Heart failure, unspecified; M62.838 Other muscle spasm; F17.200 Nicotine dependence, unspecified, uncomplicated; Z90.49 Acquired absence of other specified parts of digestive tract; Z79.899 Other long term (current) drug therapy
CPT/HCPCS: 36415; 71045; 80053; 80307; 81001; 82550; 82553; 83036; 83690; 84484; 85025; 85379; 93005; 93017; 96372; 96374; 96375; 96376; 99291; C9113; G0378; J1170; J1644; J2270; J2405

== ENCOUNTER 2021-07-04 10:52 | Emergency (ER) | payer MEDICAID ==
--- NOTE | 2021-07-04 11:18 | Emergency Department Report ---
ED Psych HPI - General Chief Complaint: Psych Stated Complaint: OD/ RELAPSE Time Seen by Provider: 07/04/21 11:03 Source: patient, EMS Mode of arrival: Ambulatory - History of Present Illness Initial Comments: Chief complaint: Overdose HPI: This is a 55-year-old female with history of Hypertension, CVA, congestive heart failure, bipolar disorder, hypothyroidism who presents with overdose intentional Tylenol and ibuprofen. Patient also relapsed on crack cocaine today after 20 years of being sober. She is severely depressed. She does not want to live anymore. She called 911 because "I need help." After the ingestion, she developed moderate diffuse abdominal pain with nausea. She has multiple social stressors. She mentioned family issues. She lives with her daughter who "does not care." She states that she has been "too unstable" to work. She receives disability payments. Ingestion occurred 45 minutes prior to arrival. Mrs. Costa was able to clarify the time of ingestion. She stated that her daughter left for work at 915. She became sad. She ingested ibuprofen and Tylenol at that time. MD Complaint: feels depressed, other (Suicide attempt) -: This morning Associated Psychiatric Symptoms: depression, suicidal ideation History of same: Yes Quality: constant Improves With: none Worsens With: none Context: recent drug abuse, not taking psychiatric Associated Symptoms: nausea, other (Abdominal pain) Treatments Prior to Arrival: other (EMS transport) If Self Harm: has acted on plan - Related Data Home Medications Medication Instructions Recorded Confirmed Last Taken Levothyroxine [Synthroid] 75 mcg PO QAM 02/15/13 07/14/20 10/20/15 Sertraline [Zoloft] 25 mg PO QDAY 02/15/13 07/14/20 10/20/15 Previous Rx's Medication Instructions Recorded Last Taken Type predniSONE [Deltasone] 20 mg PO DAILY #5 tablet 04/19/19 Unknown Rx Naproxen [Naprosyn TAB] 500 mg PO BID PRN #20 tablet 07/15/20 Unknown Rx Pantoprazole [Protonix TAB] 40 mg PO DAILY #14 tablet 07/15/20 Unknown Rx Allergies Allergy/AdvReac Type Severity Reaction Status Date / Time haloperidol [From Haldol] Allergy Hives Verified 07/04/21 11:02 ED Review of Systems ROS: Stated complaint: OD/ RELAPSE Other details as noted in HPI Comment: All other systems reviewed and negative Constitutional: denies: fever, malaise Eyes: denies: as per HPI Respiratory: denies: cough, shortness of breath Cardiovascular: denies: chest pain Gastrointestinal: abdominal pain, nausea Musculoskeletal: denies: back pain Psychiatric: depression, suicidal thoughts. denies: auditory hallucinations, visual hallucinations, homicidal thoughts ED Past Medical Hx - Past Medical History Previous Medical History?: Yes Hx Hypertension: Yes Hx CVA: Yes (2009 and 2013) Hx Congestive Heart Failure: Yes Hx Diabetes: No Hx Deep Vein Thrombosis: No Hx Pulmonary Embolism: No Hx GERD: Yes Hx Liver Disease: No Hx Renal Disease: No Hx Sickle Cell Disease: No Hx Arthritis: No Hx Headaches / Migraines: No Hx Seizures: No Hx Kidney Stones: No Hx Psychiatric Treatment: No (bipolar, manic depressive d/o) Hx Asthma: No Hx COPD: No Hx Tuberculosis: No Hx Dementia: No Hx HIV: No Additional medical history: hypothyroidism - Surgical History Past Surgical History?: Yes Hx Appendectomy: Yes Hx Breast Surgery: Yes - Family History Family history: hypertension - Social History Smoking Status: Current Every Day Smoker Substance Use Type: Alcohol, Cocaine - Medications Home Medications: Home Medications Medication Instructions Recorded Confirmed Last Taken Type Levothyroxine [Synthroid] 75 mcg PO QAM 02/15/13 07/14/20 10/20/15 History Sertraline [Zoloft] 25 mg PO QDAY 02/15/13 07/14/20 10/20/15 History predniSONE [Deltasone] 20 mg PO DAILY #5 tablet 04/19/19 07/14/20 Unknown Rx Naproxen [Naprosyn TAB] 500 mg PO BID PRN #20 tablet 07/15/20 Unknown Rx Pantoprazole [Protonix TAB] 40 mg PO DAILY #14 tablet 07/15/20 Unknown Rx ED Physical Exam - General Limitations: No Limitations General appearance: alert, in no apparent distress, other (Tearful crying loudly rocking back and forth) - Head Head exam: Present: atraumatic, normocephalic - Eye Eye exam: Present: normal appearance - ENT ENT exam: Present: mucous membranes moist - Neck Neck exam: Present: normal inspection, full ROM - Respiratory Respiratory exam: Present: normal lung sounds bilaterally. Absent: respiratory distress, wheezes, rales, rhonchi - Cardiovascular Cardiovascular Exam: Present: regular rate, normal rhythm, normal heart sounds. Absent: systolic murmur, diastolic murmur, rubs, gallop - GI/Abdominal GI/Abdominal exam: Present: soft, normal bowel sounds. Absent: distended, tenderness, guarding, rebound - Extremities Exam Extremities exam: Present: normal inspection - Back Exam Back exam: Present: normal inspection - Neurological Exam Neurological exam: Present: alert, oriented X3 - Psychiatric Psychiatric exam: Present: depressed, suicidal ideation, other (Appropriate affect considering depressed mood) - Skin Skin exam: Present: warm, dry, intact, normal color. Absent: rash ED Course Vital Signs 07/04/21 07/04/21 07/04/21 10:59 11:55 11:58 Temperature 98.1 F 98.7 F Pulse Rate 71 61 Respiratory 16 16 Rate Blood Pressure Blood Pressure 157/105 146/101 [Right] O2 Sat by Pulse 98 98 98 Oximetry 07/04/21 07/04/21 07/04/21 12:08 12:30 13:16 Temperature Pulse Rate 60 59 L 64 Respiratory 15 21 15 Rate Blood Pressure 136/88 108/72 126/87 Blood Pressure [Right] O2 Sat by Pulse Oximetry 07/04/21 07/04/21 07/04/21 13:30 14:00 14:30 Temperature Pulse Rate 69 60 62 Respiratory 12 21 20 Rate Blood Pressure 132/85 119/71 111/63 Blood Pressure [Right] O2 Sat by Pulse Oximetry ED Medical Decision Making - Lab Data Result diagrams: 07/04/21 11:05 07/04/21 11:06 - EKG Data -: EKG Interpreted by Ms EKG shows normal: sinus rhythm Rate: normal - EKG Data 07/04/21 11:23 EKG obtained 1115 EKG interpreted by me Rate 65 bpm normal sinus rhythm normal intervals no ST elevation incomplete right bundle branch block biphasic T waves leads V1 V2 - Medical Decision Making 1. Intentional overdose of ibuprofen and Tylenol. Patient ingested half a bottle of each medication. 4 to 6-hour level is below the toxic range. Patient did clarify several times with me on a consistent basis to time approximately 10-10 15 after her daughter left for work this morning. I spoke directly with the [place] [facility] senior science consultant for recommendations after she recommended N-acetylcysteine. 2. Relapse of crack cocaine: Patient denies chest pain or shortness of breath. No indication of cardiac injury at this point. 3. Suicide attempt. History of bipolar disorder: Patient has been noncompliant with medication. She does not appear to have access to mental health services in the outpatient setting. 1013 form completed. I discussed case with mental health underground foreman. Plan is to admit patient to [facility] tomorrow once coronavirus PCR test is negative. Patient is medically clear for psychiatric care. Critical Care Time: Yes Critical care time in (mins) excluding proc time.: 40 Critical care attestation.: If time is entered above; I have spent that time in minutes in the direct care of this critically ill patient, excluding procedure time. 40 minutes of critical care time excluding procedures were used in the care of the patient. I came immediately to the bedside upon patient's arrival. I obtained history from EMS at the bedside. I discussed treatment plan with the nursing team members. I reviewed electronic record. I received report from charge nurse after she spoke with [place] [facility] control. Patient required multiple interventions and reassessments. ED Disposition Clinical Impression: Intentional ibuprofen overdose, Intentional acetaminophen overdose, Suicide attempt Disposition: 30 STILL A PATIENT Is pt being admited?: No Does the pt Need Aspirin: No Condition: Stable
[2021-07-04 12:27] LABS: Basophils # (Auto) 0.1 K/mm3 (0.0-0.1); Basophils % (Auto) 0.9 % (0.0-1.8); Eosinophils % (Auto) 0.5 % (0.0-4.3); Lymphocytes # (Auto) 2.8 K/mm3 (1.2-5.4); Lymphocytes % (Auto) 37.2 % (13.4-35.0); Mean Corpuscular HGB Conc 33 % (30-34); Mean Corpuscular Volume 99 fl (79-97); Monocytes # (Auto) 0.7 K/mm3 (0.0-0.8); Monocytes % (Auto) 9.6 % (0.0-7.3); Platelet Count 267 K/mm3 (140-440); Red Blood Count 4.36 M/mm3 (3.65-5.03); Red Cell Distribution Width 13.4 % (13.2-15.2)
[2021-07-04 12:39] LABS: Alanine Aminotransferase 14 units/L (7-56); Albumin 4.3 g/dL (3.9-5); BUN/Creatinine Ratio 9; Blood Urea Nitrogen 8 mg/dL (7-17); Calcium 9.5 mg/dL (8.4-10.2); Hemolysis Index 8
[2021-07-04 13:43] LABS: Amphetamine Screen,Urine Negative; Benzodiazepines Screen,Urine Negative; Cannabinoid Screen,Urine Negative; Methadone Screen,Urine Negative; Opiate Screen,Urine Negative
[2021-07-04 13:58] LABS: Cocaine Screen,Urine Positive
[2021-07-04 15:59] LABS: Bilirubin,Urine NEG (Negative); Blood,Urine SM (Negative); Color,Urine Straw (Yellow); Protein,Urine <15 mg/dL mg/dL (Negative); Urobilinogen,Urine < 2.0 mg/dL (<2.0)
[2021-07-04 17:41] LABS: Bacteria,Urine 4+ /HPF (Negative); Mucus,Urine FEW /HPF
[2021-07-04] MEDS ORDERED: oxyCODONE 5 MG TAB PO ONE (17:45)
[2021-07-04] MEDS ORDERED: LIDOCAINE VISCOUS 2% 15 ML ORAL LIQD PO ONE (17:45)
[2021-07-04] MEDS ORDERED: ALUM-MAG HYDROXIDE-SIMETHICONE 200-200-20MG/5ML ORAL LIQD 30 ML PO ONE (17:45)
[2021-07-04] MEDS ORDERED: ONDANSETRON 4 MG/2 ML INJ IV ONE (17:46)
--- NOTE | 2021-07-05 23:22 | Event Note ---
Date: 07/05/21 56-year-old female with suicidal ideation and attempted overdose with Tylenol and ibuprofen. She was seen by my colleague and was medically cleared for psychiatric evaluation placement. Vital signs reviewed and are stable. No acute events overnight. Currently awaiting inpatient psychiatric facility placement.
--- NOTE | 2021-07-06 09:22 | Consultation ---
History of Present Illness - Reason for Consult Consult date: 07/05/21 Reason for consult: suicidal Ideation - History of Present Psychiatric Illness ED Note: This is a 55-year-old female with history of Hypertension, CVA, congestive heart failure, bipolar disorder, hypothyroidism who presents with overdose intentional Tylenol and ibuprofen. Patient also relapsed on crack cocaine today after 20 years of being sober. She is severely depressed. She does not want to live anymore. She called 911 because "I need help." After the ingestion, she developed moderate diffuse abdominal pain with nausea. She has multiple social stressors. She mentioned family issues. She lives with her daughter who "does not care." She states that she has been "too unstable" to work. She receives disability payments. Ingestion occurred 45 minutes prior to arrival. The patient was seen. She is agitated and loud, stating she just woke up and that she has answered this questions before. The patient endorses depression and suicidal ideation. REVIEW OF SYSTEMS Constitutional: Negative for weight loss ENT: Negative for stridor Respiratory: Negative for cough or hemoptysis All other systems reviewed and are negative MENTAL STATUS EXAMINATION General Appearance and Behavior: Age appropriate, good hygiene, wearing appropriate clothes. anxious, noncooperative Cooperation: noncooperative Psychomotor Behavior: Psychomotor normal Mood: depressed Affect and affective range: congruent with stated mood Thought Process: illogical Thought Content: suicidal Speech: Normal volume, Regular rate and rhythm, Suicidal Ideation: yes Homicidal Ideation: Denies Hallucinations:Denies Delusions: none elicited Impulse Control: impaired Insight and Judgment: Limited Memory: limited Attention: Attentive Orientation: alert and oriented Assessment and Plan (1) Bipolar Treatment Plan 1013 Continue home meds. Start Seroquel 25mg po BID Start Seroquel 50mg po QHS Medical: per primary Sitter: per primary Disposition: recommend acute psychiatric inpatient treatment. Will follow. Thanks Case staffed with Dr. Barroso Medications and Allergies Medications and Allergies Allergies Allergy/AdvReac Type Severity Reaction Status Date / Time haloperidol [From Haldol] Allergy Hives Verified 07/04/21 11:02 Home Medications Medication Instructions Recorded Confirmed Last Taken Type Levothyroxine [Synthroid] 75 mcg PO QAM 02/15/13 07/05/21 10/20/15 History Mental Status Exam - Vital signs Last Vital Signs Temp 98.4 F 07/06/21 04:18 Pulse 55 L 07/06/21 04:18 Resp 18 07/06/21 06:09 BP 109/55 07/06/21 04:18 Pulse Ox 97 07/06/21 07:45 Results Result Diagrams: 07/04/21 11:05 07/04/21 11:06 All other labs normal.
--- NOTE | 2021-07-06 09:36 | Progress Note ---
Subjective - Reason for Consult Consult date: 07/06/21 Reason for consult: si - Chief Complaint Chief complaint: The patient was seen this morning. She still continues to present as irritable. She states no changes from yesterday. REVIEW OF SYSTEMS Constitutional: Negative for weight loss ENT: Negative for stridor Respiratory: Negative for cough or hemoptysis All other systems reviewed and are negative MENTAL STATUS EXAMINATION General Appearance and Behavior: Age appropriate, good hygiene, wearing appropriate clothes. anxious, noncooperative Cooperation: noncooperative Psychomotor Behavior: Psychomotor normal Mood: depressed Affect and affective range: congruent with stated mood Thought Process: illogical Thought Content: suicidal Speech: Normal volume, Regular rate and rhythm, Suicidal Ideation: yes Homicidal Ideation: Denies Hallucinations:Denies Delusions: none elicited Impulse Control: impaired Insight and Judgment: Limited Memory: limited Attention: Attentive Orientation: alert and oriented Assessment and Plan (1) Bipolar Treatment Plan 1013 Continue home meds. Start Seroquel 25mg po BID Start Seroquel 50mg po QHS Medical: per primary Sitter: per primary Disposition: recommend acute psychiatric inpatient treatment. Will follow. Thanks Case staffed with Dr. Barroso Medications and Allergies Mental Status Exam - Vital signs Last Vital Signs Temp 98.4 F 07/06/21 04:18 Pulse 55 L 07/06/21 04:18 Resp 18 07/06/21 06:09 BP 109/55 07/06/21 04:18 Pulse Ox 97 07/06/21 07:45
[2021-07-06] MEDS ORDERED: LEVOTHYROXINE 75 MCG TAB PO SCH (10:00)
[2021-07-06] MEDS: QUEtiapine 25 MG TAB PO SCH ×2 (10:31→22:20)
--- NOTE | 2021-07-06 11:16 | Event Note ---
Date: 07/06/21 56-year-old female here with SI and attempted OD. She was seen by my colleague and was medically cleared. Vital signs reviewed and are stable. No acute events overnight. Currently awaiting placement.
[2021-07-06] MEDS ORDERED: QUEtiapine 25 MG TAB PO SCH (22:00)
[2021-07-06 23:49] VITALS: BP 123/63
--- NOTE | 2021-07-09 17:04 | Electrocardiograph Report ---
[facility] Test Date: 2021-07-04 Test Time: 11:15:51 Pat Name: NATALIE LOPES Department: Room: Gender: F Search Optimization Analyst: TOM : 1965 Requested By: ELEANOR KAN Order Number: [id number] Reading MD: Jonathan Melgar Measurements Intervals [place] Rate: 65 P: 64 [place]: 140 QRS: 93 QRSD: 85 T: 70 QT: 488 QTc: 509 Interpretive Statements Sinus rhythm Nonspecific T abnrm, anterolateral leads No previous ECG available for comparison Electronically Signed On 07-09-2021 17:04:03 EST by Jonathan Melgar
== END 2021-07-06 23:48 | disposition still patient (30) ==
LOC: ED 10:52
DX: T39.312A Poisoning by propionic acid derivatives, intentional self-harm, initial encounter (principal); Z20.822 Contact with and (suspected) exposure to COVID-19; E03.9 Hypothyroidism, unspecified; F17.200 Nicotine dependence, unspecified, uncomplicated; F14.90 Cocaine use, unspecified, uncomplicated; F10.10 Alcohol abuse, uncomplicated; I11.0 Hypertensive heart disease with heart failure; I50.9 Heart failure, unspecified; Z79.899 Other long term (current) drug therapy; Z88.8 Allergy status to other drugs, medicaments and biological substances; Y90.9 Presence of alcohol in blood, level not specified; Y92.89 Other specified places as the place of occurrence of the external cause
CPT/HCPCS: 36415; 80053; 80307; 81001; 85025; 93005; 93010; 99285; U0003; 80320; 99284; G0480

== ENCOUNTER 2021-07-06 19:12 | Inpatient (IN) | payer MEDICAID ==
[2021-07-07] MEDS: traZODone 50 MG TAB PO SCH ×2 (05:12→21:40)
[2021-07-07 06:22] LABS: Alanine Aminotransferase 9 units/L (7-56); Albumin 3.4 g/dL (3.9-5); BUN/Creatinine Ratio 15; Blood Urea Nitrogen 12 mg/dL (7-17); Calcium 8.8 mg/dL (8.4-10.2); Chol/HDL Ratio 5.46 %; HDL Cholesterol 30 mg/dL (40-59); Hemolysis Index 13; LDL Cholesterol,Direct 114 mg/dL (50-130)
[2021-07-07 06:35] LABS: Basophils % (Auto) 0.4 % (0.0-1.8); Eosinophils # (Auto) 0.1 K/mm3 (0.0-0.4); Eosinophils % (Auto) 1.8 % (0.0-4.3); Hematocrit 39.2 % (30.3-42.9); Hemoglobin 12.8 gm/dl (10.1-14.3); Lymphocytes # (Auto) 2.6 K/mm3 (1.2-5.4); Lymphocytes % (Auto) 40.3 % (13.4-35.0); Mean Corpuscular HGB Conc 33 % (30-34); Mean Corpuscular Volume 98 fl (79-97); Monocytes # (Auto) 0.7 K/mm3 (0.0-0.8); Monocytes % (Auto) 10.3 % (0.0-7.3); Platelet Count 240 K/mm3 (140-440); Red Blood Count 3.99 M/mm3 (3.65-5.03); Red Cell Distribution Width 13.7 % (13.2-15.2)
[2021-07-07 07:28] LABS: Hepatitis B Surface Antigen Non-Reactive (Negative); Hepatitis C Virus Antibody Reactive (NonReactive)
[2021-07-07 08:24] LABS: Bacteria,Urine 3+ /HPF (Negative); Bilirubin,Urine NEG (Negative); Blood,Urine SM (Negative); Color,Urine Yellow (Yellow); Mucus,Urine FEW /HPF; Protein,Urine <15 mg/dL mg/dL (Negative); Urobilinogen,Urine < 2.0 mg/dL (<2.0)
--- NOTE | 2021-07-07 10:26 | History and Physical Report ---
History of Present Illness Date of admission: 07/07/21 00:14 Medications and Allergies Allergies Allergy/AdvReac Type Severity Reaction Status Date / Time haloperidol [From Haldol] Allergy Hives Verified 07/06/21 09:41 Home Medications Medication Instructions Recorded Confirmed Last Taken Type Levothyroxine [Synthroid] 134 mcg PO QAM 02/15/13 07/07/2105 History Active Meds: Active Medications Trazodone HCl (Trazodone 50 Mg Tab) 50 mg PO QHS [facility] Last Admin: 07/07/21 05:12 Dose: Not Given Exam - Constitutional Vitals: Temp Pulse Resp BP Pulse Ox 98.7 F 16 L 16 111/77 96 07/07/21 00:37 07/07/21 00:37 07/07/21 00:37 07/07/21 00:37 07/07/21 00:37 Results - Labs CBC & Chem 7: 07/07/21 05:20 07/07/21 05:20 Labs: Laboratory Last Values WBC 6.5 K/mm3 (4.5-11.0) 07/07/21 05:20 RBC 3.99 M/mm3 (3.65-5.03) 07/07/21 05:20 Hgb 12.8 gm/dl (10.1-14.3) 07/07/21 05:20 Hct 39.2 % (30.3-42.9) 07/07/21 05:20 MCV 98 fl (79-97) H 07/07/21 05:20 MCH 32 pg (28-32) 07/07/21 05:20 MCHC 33 % (30-34) 07/07/21 05:20 RDW 13.7 % (13.2-15.2) 07/07/21 05:20 Plt Count 240 K/mm3 (140-440) 07/07/21 05:20 Lymph % (Auto) 40.3 % (13.4-35.0) H 07/07/21 05:20 [place] % (Auto) 10.3 % (0.0-7.3) H 07/07/21 05:20 Eos % (Auto) 1.8 % (0.0-4.3) 07/07/21 05:20 Baso % (Auto) 0.4 % (0.0-1.8) 07/07/21 05:20 Lymph # (Auto) 2.6 K/mm3 (1.2-5.4) 07/07/21 05:20 [place] # (Auto) 0.7 K/mm3 (0.0-0.8) 07/07/21 05:20 Eos # (Auto) 0.1 K/mm3 (0.0-0.4) 07/07/21 05:20 Baso # (Auto) 0.0 K/mm3 (0.0-0.1) 07/07/21 05:20 Seg Neutrophils % 47.2 % (40.0-70.0) 07/07/21 05:20 Seg Neutrophils # 3.1 K/mm3 (1.8-7.7) 07/07/21 05:20 Sodium 140 mmol/L (137-145) 07/07/21 05:20 Potassium 3.6 mmol/L (3.6-5.0) 07/07/21 05:20 Chloride 107.3 mmol/L (98-107) H 07/07/21 05:20 Carbon Dioxide 22 mmol/L (22-30) 07/07/21 05:20 Anion Gap 14 mmol/L 07/07/21 05:20 BUN 12 mg/dL (7-17) 07/07/21 05:20 Creatinine 0.8 mg/dL (0.6-1.2) 07/07/21 05:20 Estimated GFR > 60 ml/min 07/07/21 05:20 BUN/Creatinine Ratio 15 % 07/07/21 05:20 Glucose 102 mg/dL (65-100) H 07/07/21 05:20 POC Glucose 96 mg/dL (70-105) 07/07/21 06:20 Hemoglobin A1c 5.7 % (4-6) 07/07/21 05:20 Calcium 8.8 mg/dL (8.4-10.2) 07/07/21 05:20 Total Bilirubin 0.20 mg/dL (0.1-1.2) 07/07/21 05:20 AST 12 units/L (5-40) 07/07/21 05:20 ALT 9 units/L (7-56) 07/07/21 05:20 Alkaline Phosphatase 127 units/L (35-129) 07/07/21 05:20 Total Protein 6.4 g/dL (6.3-8.2) 07/07/21 05:20 Albumin 3.4 g/dL (3.9-5) L 07/07/21 05:20 Albumin/Globulin Ratio 1.1 % 07/07/21 05:20 Triglycerides 146 mg/dL (2-149) 07/07/21 05:20 Cholesterol 164 mg/dL (50-199) 07/07/21 05:20 LDL Cholesterol Direct 114 mg/dL (50-130) 07/07/21 05:20 HDL Cholesterol 30 mg/dL (40-59) L 07/07/21 05:20 Cholesterol/HDL Ratio 5.46 % 07/07/21 05:20 TSH 21.760 mlU/mL (0.270-4.200) H 07/07/21 05:20 Urine Color Yellow (Yellow) 07/07/21 Unknown Urine Turbidity Hazy (Clear) 07/07/21 Unknown Urine pH 5.0 (5.0-7.0) 07/07/21 Unknown Ur Specific [place] 1.005 (1.003-1.030) 07/07/21 Unknown Urine Protein <15 mg/dl mg/dL (Negative) 07/07/21 Unknown Urine Glucose (UA) Neg mg/dL (Negative) 07/07/21 Unknown Urine Ketones Neg mg/dL (Negative) 07/07/21 Unknown Urine Blood Sm (Negative) 07/07/21 Unknown Urine Nitrite Neg (Negative) 07/07/21 Unknown Urine Bilirubin Neg (Negative) 07/07/21 Unknown Urine Urobilinogen < 2.0 mg/dL (<2.0) 07/07/21 Unknown Ur Leukocyte Esterase Neg (Negative) 07/07/21 Unknown Urine WBC (Auto) 5.0 /HPF (0.0-6.0) 07/07/21 Unknown Urine RBC (Auto) 2.0 /HPF (0.0-6.0) 07/07/21 Unknown U Epithel Cells (Auto) 2.0 /HPF (0-13.0) 07/07/21 Unknown Urine Bacteria (Auto) 3+ /HPF (Negative) 07/07/21 Unknown Urine Mucus Few /HPF 07/07/21 Unknown Hepatitis A IgM Ab Non-reactive (NonReactive) 07/07/21 05:20 Hep Bs Antigen Non-reactive (Negative) 07/07/21 05:20 Hep B Core IgM Ab Non-reactive (NonReactive) 07/07/21 05:20 Hepatitis C Antibody Reactive (NonReactive) A 07/07/21 05:20 [place]/IV: Voiding Method Toilet
--- NOTE | 2021-07-07 13:27 | History and Physical Report ---
GP History & Physical - History of Present Illness Date of admission: 07/06/21 Date of Examination: 07/07/21 Reason for Admission: Danger to self, Danger to others, Failure of Outpatient Treatment Chief Complaint: suicidal attempt History of Present Illness: The patient is a 56 year old female with history of bipolar, depression and schizophrenia who was admitted via the ED for intentional overdose on unknown amount of Tylenol and Ibuprofen. The patient was initially seen in the ED, she was irritable and not engaging with this manual writer. The patient was seen today, she is calm, alert and oriented x 3. She reports stressors such as family related. She reports being sober for about 20 years but recently relapsed due to stress; she expresses remorse . She reports feeling better today and requesting to be discharged. She continues to present with constricted affect. She denies cravings for crack. Denies any current suicidal ideation and denies hallucinations. PAST PSYCHIATRIC HISTORY: Diagnoses: Bipolar, Depression, Schizophrenia Suicide attempts or Self-harm behavior: Denies Prior psychiatric hospitalizations: yes Substance Abuse history: Crack Cocaine Previous psychiatric medications tried:Unable to recall Outpatient treatment: Unknown PAST MEDICAL HISTORY: Hypertension, CVA, congestive heart failure, and hypothyroidism Family Psychiatric History: None reported or documented SOCIAL HISTORY Marital Status: Single Living Arrangements:Live with son Employment Status: Disabled Access to guns/weapons: Denies Education: 11th grade History of Abuse: Denies Legal History: Denies REVIEW OF SYSTEMS Constitutional: Negative for weight loss ENT: Negative for stridor Respiratory: Negative for cough or hemoptysis All other systems reviewed and are negative MENTAL STATUS EXAMINATION General Appearance and Behavior: Age appropriate, good hygiene, wearing appropriate clothes. cooperative Cooperation: Cooperative, guarded Psychomotor Behavior: Psychomotor normal Mood: depressed Affect and affective range: congruent with stated mood Thought Process: goal directed Thought Content: reality oriented Speech: Normal tone and pace Suicidal Ideation: Denies Homicidal Ideation: Denies Hallucinations: Denies Delusions: None elicited Impulse Control: Limited Insight and Judgment: Limited insight and fair judgment Memory: Limited Attention: distracted Orientation: a/o x 3 Assessment (1) Major depressive Disorder Current Visit: Yes Status: Acute Treatment Plan Patient admitted for inpatient psychiatric evaluation, medication adjustment and close monitoring The patient's behavior, mood, sleep and appetite will be closely monitored. Patient enrolled in individual and group therapeutic sessions and encouraged to attend. Patient provided with a safe and structured environment. Patient's physical health needs will be addressed by the Hospitalist. Hospitalist Consulted Labs including CBC, CMP, Lipid profile and Hemoglobin A1C levels ordered for baseline reference Social Assessment will be completed and the Drafter Heating [employer] Ventilating will work with patient and family to ensure a suitable and safe disposition Medication adjustment will be made as clinically indicated Restarted home meds Usual Wellness Yazdanism/Preservation: - Start Trazodone 50 mg po QHS & 50 mg po QHS PRN between 10 PM & 2 AM for insomnia - Start Melatonin 5 mg po QHS to promote circadian rhythm The patient agreed on the treatment plan, understood the risk, benefit, alternative treatment, potential consequence of no treatment, and gave informed consent. Estimated days: 7 Post hospital care: primary care provider, psychiatric provider Case staffed with Dr. Barroso Legal Status: Voluntary Reaction to Hospitalization: Accepting Medications and Allergies Medications and Allergies Allergies Allergy/AdvReac Type Severity Reaction Status Date / Time haloperidol [From Haldol] Allergy Hives Verified 07/06/21 09:41 Home Medications Medication Instructions Recorded Confirmed Last Taken Type Levothyroxine [Synthroid] 134 mcg PO QAM 02/15/13 07/07/21 10/20/15 History Active Meds: Active Medications Trazodone HCl (Trazodone 50 Mg Tab) 50 mg PO QHS KIERAN Last Admin: 07/07/21 05:12 Dose: Not Given Results - Results Labs/Vitals: Laboratory Last Values WBC 6.5 K/mm3 (4.5-11.0) 07/07/21 05:20 RBC 3.99 M/mm3 (3.65-5.03) 07/07/21 05:20 Hgb 12.8 gm/dl (10.1-14.3) 07/07/21 05:20 Hct 39.2 % (30.3-42.9) 07/07/21 05:20 MCV 98 fl (79-97) H 07/07/21 05:20 MCH 32 pg (28-32) 07/07/21 05:20 MCHC 33 % (30-34) 07/07/21 05:20 RDW 13.7 % (13.2-15.2) 07/07/21 05:20 Plt Count 240 K/mm3 (140-440) 07/07/21 05:20 Lymph % (Auto) 40.3 % (13.4-35.0) H 07/07/21 05:20 [place] % (Auto) 10.3 % (0.0-7.3) H 07/07/21 05:20 Eos % (Auto) 1.8 % (0.0-4.3) 07/07/21 05:20 Baso % (Auto) 0.4 % (0.0-1.8) 07/07/21 05:20 Lymph # (Auto) 2.6 K/mm3 (1.2-5.4) 07/07/21 05:20 [place] # (Auto) 0.7 K/mm3 (0.0-0.8) 07/07/21 05:20 Eos # (Auto) 0.1 K/mm3 (0.0-0.4) 07/07/21 05:20 Baso # (Auto) 0.0 K/mm3 (0.0-0.1) 07/07/21 05:20 Seg Neutrophils % 47.2 % (40.0-70.0) 07/07/21 05:20 Seg Neutrophils # 3.1 K/mm3 (1.8-7.7) 07/07/21 05:20 Sodium 140 mmol/L (137-145) 07/07/21 05:20 Potassium 3.6 mmol/L (3.6-5.0) 07/07/21 05:20 Chloride 107.3 mmol/L (98-107) H 07/07/21 05:20 Carbon Dioxide 22 mmol/L (22-30) 07/07/21 05:20 Anion Gap 14 mmol/L 07/07/21 05:20 BUN 12 mg/dL (7-17) 07/07/21 05:20 Creatinine 0.8 mg/dL (0.6-1.2) 07/07/21 05:20 Estimated GFR > 60 ml/min 07/07/21 05:20 BUN/Creatinine Ratio 15 % 07/07/21 05:20 Glucose 102 mg/dL (65-100) H 07/07/21 05:20 POC Glucose 96 mg/dL (70-105) 07/07/21 06:20 Hemoglobin A1c 5.7 % (4-6) 07/07/21 05:20 Calcium 8.8 mg/dL (8.4-10.2) 07/07/21 05:20 Total Bilirubin 0.20 mg/dL (0.1-1.2) 07/07/21 05:20 AST 12 units/L (5-40) 07/07/21 05:20 ALT 9 units/L (7-56) 07/07/21 05:20 Alkaline Phosphatase 127 units/L (35-129) 07/07/21 05:20 Total Protein 6.4 g/dL (6.3-8.2) 07/07/21 05:20 Albumin 3.4 g/dL (3.9-5) L 07/07/21 05:20 Albumin/Globulin Ratio 1.1 % 07/07/21 05:20 Triglycerides 146 mg/dL (2-149) 07/07/21 05:20 Cholesterol 164 mg/dL (50-199) 07/07/21 05:20 LDL Cholesterol Direct 114 mg/dL (50-130) 07/07/21 05:20 HDL Cholesterol 30 mg/dL (40-59) L 07/07/21 05:20 Cholesterol/HDL Ratio 5.46 % 07/07/21 05:20 TSH 21.760 mlU/mL (0.270-4.200) H 07/07/21 05:20 Urine Color Yellow (Yellow) 07/07/21 Unknown Urine Turbidity Hazy (Clear) 07/07/21 Unknown Urine pH 5.0 (5.0-7.0) 07/07/21 Unknown Ur Specific [place] 1.005 (1.003-1.030) 07/07/21 Unknown Urine Protein <15 mg/dl mg/dL (Negative) 07/07/21 Unknown Urine Glucose (UA) Neg mg/dL (Negative) 07/07/21 Unknown Urine Ketones Neg mg/dL (Negative) 07/07/21 Unknown Urine Blood Sm (Negative) 07/07/21 Unknown Urine Nitrite Neg (Negative) 07/07/21 Unknown Urine Bilirubin Neg (Negative) 07/07/21 Unknown Urine Urobilinogen < 2.0 mg/dL (<2.0) 07/07/21 Unknown Ur Leukocyte Esterase Neg (Negative) 07/07/21 Unknown Urine WBC (Auto) 5.0 /HPF (0.0-6.0) 07/07/21 Unknown Urine RBC (Auto) 2.0 /HPF (0.0-6.0) 07/07/21 Unknown U Epithel Cells (Auto) 2.0 /HPF (0-13.0) 07/07/21 Unknown Urine Bacteria (Auto) 3+ /HPF (Negative) 07/07/21 Unknown Urine Mucus Few /HPF 07/07/21 Unknown Hepatitis A IgM Ab Non-reactive (NonReactive) 07/07/21 05:20 Hep Bs Antigen Non-reactive (Negative) 07/07/21 05:20 Hep B Core IgM Ab Non-reactive (NonReactive) 07/07/21 05:20 Hepatitis C Antibody Reactive (NonReactive) A 07/07/21 05:20 Last Vital Signs Temp 98.2 F 07/07/21 08:48 Pulse 65 07/07/21 08:48 Resp 18 07/07/21 08:48 BP 128/80 07/07/21 08:48 Pulse Ox 96 07/07/21 08:48 Physical Examination - Constitutional Vitals: Vital Signs Temp Pulse Resp BP Pulse Ox 98.2 F 65 18 128/80 96 07/07/21 08:48 07/07/21 08:48 07/07/21 08:48 07/07/21 08:48 07/07/21 08:48 Temperature -Last 24 Hours Temperature 98.2 F Temperature 98.7 F Mental Status Exam - Vital signs Last Vital Signs Temp 98.2 F 07/07/21 08:48 Pulse 65 07/07/21 08:48 Resp 18 07/07/21 08:48 BP 128/80 07/07/21 08:48 Pulse Ox 96 07/07/21 08:48 Physician Certification - Certification Statement Physician Certification Statement: This is an acknowledgement statement that NATALIE LOPES is a 56 year old F who requires inpatient psychiatric admission for treatment which could reasonably be expected to improve the patient's condition for Estimated period of time patient will need to remain in the hospital: [ ] Plan for post-hospital care: [ ]
[2021-07-07] MEDS: VENLAFAXINE 37.5 MG TAB PO SCH ×2 (18:22→21:41)
[2021-07-07] MEDS: QUEtiapine 25 MG TAB PO SCH ×2 (18:25→21:40)
[2021-07-08] MEDS: VENLAFAXINE 37.5 MG TAB PO SCH ×3 (09:11→21:23)
[2021-07-08] MEDS: QUEtiapine 25 MG TAB PO SCH ×3 (09:11→21:23)
[2021-07-08] MEDS: LEVOTHYROXINE 112 MCG TAB PO SCH (09:33)
[2021-07-08] MEDS: LEVOTHYROXINE 25 MCG TAB PO SCH (09:33)
--- NOTE | 2021-07-08 09:57 | Progress Note ---
Subjective Date of service: 07/08/21 Subjective Comment: 07/08/21: The patient was seen this morning. She reports doing well. She continues to be depressed, rating as 6/10. She denies any current suicidal/homicidal ideation and denies hallucinations. REVIEW OF SYSTEMS Constitutional: Negative for weight loss ENT: Negative for stridor Respiratory: Negative for cough or hemoptysis All other systems reviewed and are negative MENTAL STATUS EXAMINATION General Appearance and Behavior: Age appropriate, good hygiene, wearing appropriate clothes. cooperative Cooperation: Cooperative, guarded Psychomotor Behavior: Psychomotor normal Mood: depressed Affect and affective range: congruent with stated mood Thought Process: goal directed Thought Content: reality oriented Speech: Normal tone and pace Suicidal Ideation: Denies Homicidal Ideation: Denies Hallucinations: Denies Delusions: None elicited Impulse Control: Limited Insight and Judgment: Limited insight and fair judgment Memory: Limited Attention: distracted Orientation: a/o x 3 Assessment (1) Major depressive Disorder Current Visit: Yes Status: Acute Treatment Plan Patient admitted for inpatient psychiatric evaluation, medication adjustment and close monitoring The patient's behavior, mood, sleep and appetite will be closely monitored. Patient enrolled in individual and group therapeutic sessions and encouraged to attend. Patient provided with a safe and structured environment. Patient's physical health needs will be addressed by the Hospitalist. Hospitalist Consulted Labs including CBC, CMP, Lipid profile and Hemoglobin A1C levels ordered for baseline reference Social Assessment will be completed and the Account Services Coordinator will work with patient and family to ensure a suitable and safe disposition Medication adjustment will be made as clinically indicated Restarted home meds Usual Wellness Pentecostal/Preservation: - Start Trazodone 50 mg po QHS & 50 mg po QHS PRN between 10 PM & 2 AM for insomnia - Start Melatonin 5 mg po QHS to promote circadian rhythm The patient agreed on the treatment plan, understood the risk, benefit, alternative treatment, potential consequence of no treatment, and gave informed consent. Estimated days: 7 Post hospital care: primary care provider, psychiatric provider Case staffed with Dr. Barroso Legal Status: Voluntary Reaction to Hospitalization: Accepting Medications and Ppy[place]umkc74/22/22: Medications and Allergies Allergies Allergy/AdvReac Type Severity Reaction Status Date / Time haloperidol [From Haldol] Allergy Hives Verified 07/06/21 09:41 Home Medications Medication Instructions Recorded Confirmed Last Taken Type Levothyroxine [Synthroid] 134 mcg PO QAM 02/15/13 07/07/21 10/20/15 History Active Meds: Active Medications Levothyroxine Sodium (Levothyroxine 112 Mcg Tab) 112 mcg PO DAILY@0600 [facility] Last Admin: 07/08/21 09:33 Dose: 112 mcg Levothyroxine Sodium (Levothyroxine 25 Mcg Tab) 25 mcg PO DAILY@0600 [facility] Last Admin: 07/08/21 09:33 Dose: 25 mcg Quetiapine Fumarate (Quetiapine 25 Mg Tab) 25 mg PO BID [facility] Last Admin: 07/08/21 09:39 Dose: Not Given Trazodone HCl (Trazodone 50 Mg Tab) 50 mg PO QHS [facility] Last Admin: 07/07/21 21:40 Dose: Not Given Venlafaxine HCl (Venlafaxine 37.5 Mg Tab) 37.5 mg PO BID [facility] Last Admin: 07/08/21 09:39 Dose: Not Given Results - Results Labs/Vitals: Laboratory Last Values WBC 6.5 K/mm3 (4.5-11.0) 07/07/21 05:20 RBC 3.99 M/mm3 (3.65-5.03) 07/07/21 05:20 Hgb 12.8 gm/dl (10.1-14.3) 07/07/21 05:20 Hct 39.2 % (30.3-42.9) 07/07/21 05:20 MCV 98 fl (79-97) H 07/07/21 05:20 MCH 32 pg (28-32) 07/07/21 05:20 MCHC 33 % (30-34) 07/07/21 05:20 RDW 13.7 % (13.2-15.2) 07/07/21 05:20 Plt Count 240 K/mm3 (140-440) 07/07/21 05:20 Lymph % (Auto) 40.3 % (13.4-35.0) H 07/07/21 05:20 [place] % (Auto) 10.3 % (0.0-7.3) H 07/07/21 05:20 Eos % (Auto) 1.8 % (0.0-4.3) 07/07/21 05:20 Baso % (Auto) 0.4 % (0.0-1.8) 07/07/21 05:20 Lymph # (Auto) 2.6 K/mm3 (1.2-5.4) 07/07/21 05:20 [place] # (Auto) 0.7 K/mm3 (0.0-0.8) 07/07/21 05:20 Eos # (Auto) 0.1 K/mm3 (0.0-0.4) 07/07/21 05:20 Baso # (Auto) 0.0 K/mm3 (0.0-0.1) 07/07/21 05:20 Seg Neutrophils % 47.2 % (40.0-70.0) 07/07/21 05:20 Seg Neutrophils # 3.1 K/mm3 (1.8-7.7) 07/07/21 05:20 Sodium 140 mmol/L (137-145) 07/07/21 05:20 Potassium 3.6 mmol/L (3.6-5.0) 07/07/21 05:20 Chloride 107.3 mmol/L (98-107) H 07/07/21 05:20 Carbon Dioxide 22 mmol/L (22-30) 07/07/21 05:20 Anion Gap 14 mmol/L 07/07/21 05:20 BUN 12 mg/dL (7-17) 07/07/21 05:20 Creatinine 0.8 mg/dL (0.6-1.2) 07/07/21 05:20 Estimated GFR > 60 ml/min 07/07/21 05:20 BUN/Creatinine Ratio 15 % 07/07/21 05:20 Glucose 102 mg/dL (65-100) H 07/07/21 05:20 POC Glucose 96 mg/dL (70-105) 07/07/21 06:20 Hemoglobin A1c 5.7 % (4-6) 07/07/21 05:20 Calcium 8.8 mg/dL (8.4-10.2) 07/07/21 05:20 Total Bilirubin 0.20 mg/dL (0.1-1.2) 07/07/21 05:20 AST 12 units/L (5-40) 07/07/21 05:20 ALT 9 units/L (7-56) 07/07/21 05:20 Alkaline Phosphatase 127 units/L (35-129) 07/07/21 05:20 Total Protein 6.4 g/dL (6.3-8.2) 07/07/21 05:20 Albumin 3.4 g/dL (3.9-5) L 07/07/21 05:20 Albumin/Globulin Ratio 1.1 % 07/07/21 05:20 Triglycerides 146 mg/dL (2-149) 07/07/21 05:20 Cholesterol 164 mg/dL (50-199) 07/07/21 05:20 LDL Cholesterol Direct 114 mg/dL (50-130) 07/07/21 05:20 HDL Cholesterol 30 mg/dL (40-59) L 07/07/21 05:20 Cholesterol/HDL Ratio 5.46 % 07/07/21 05:20 TSH 21.760 mlU/mL (0.270-4.200) H 07/07/21 05:20 Urine Color Yellow (Yellow) 07/07/21 Unknown Urine Turbidity Hazy (Clear) 07/07/21 Unknown Urine pH 5.0 (5.0-7.0) 07/07/21 Unknown Ur Specific [place] 1.005 (1.003-1.030) 07/07/21 Unknown Urine Protein <15 mg/dl mg/dL (Negative) 07/07/21 Unknown Urine Glucose (UA) Neg mg/dL (Negative) 07/07/21 Unknown Urine Ketones Neg mg/dL (Negative) 07/07/21 Unknown Urine Blood Sm (Negative) 07/07/21 Unknown Urine Nitrite Neg (Negative) 07/07/21 Unknown Urine Bilirubin Neg (Negative) 07/07/21 Unknown Urine Urobilinogen < 2.0 mg/dL (<2.0) 07/07/21 Unknown Ur Leukocyte Esterase Neg (Negative) 07/07/21 Unknown Urine WBC (Auto) 5.0 /HPF (0.0-6.0) 07/07/21 Unknown Urine RBC (Auto) 2.0 /HPF (0.0-6.0) 07/07/21 Unknown U Epithel Cells (Auto) 2.0 /HPF (0-13.0) 07/07/21 Unknown Urine Bacteria (Auto) 3+ /HPF (Negative) 07/07/21 Unknown Urine Mucus Few /HPF 07/07/21 Unknown Hepatitis A IgM Ab Non-reactive (NonReactive) 07/07/21 05:20 Hep Bs Antigen Non-reactive (Negative) 07/07/21 05:20 Hep B Core IgM Ab Non-reactive (NonReactive) 07/07/21 05:20 Hepatitis C Antibody Reactive (NonReactive) A 07/07/21 05:20 Last Vital Signs Temp 98.2 F 07/07/21 19:55 Pulse 68 07/07/21 19:55 Resp 18 07/07/21 19:55 BP 132/89 07/07/21 19:55 Pulse Ox 94 07/07/21 19:55
[2021-07-08] MEDS ORDERED: LEVOTHYROXINE 75 MCG TAB PO SCH ×2 (10:00)
[2021-07-08] MEDS: traZODone 50 MG TAB PO SCH (21:23)
[2021-07-09] MEDS: LEVOTHYROXINE 112 MCG TAB PO SCH (06:05)
[2021-07-09] MEDS: LEVOTHYROXINE 25 MCG TAB PO SCH (06:05)
--- NOTE | 2021-07-09 08:17 | Event Note ---
Date: 07/09/21 Thank you for the interesting consult. Medicine will be signing off. Please do not hesitate to reach out should any questions arise.
--- NOTE | 2021-07-09 08:36 | Progress Note ---
Subjective Date of service: 07/09/21 Subjective Comment: 07/08/21: The patient was seen this morning. She reports doing well. She continues to be depressed, rating as 6/10. She denies any current suicidal/homicidal ideation and denies hallucinations. 07/09/21: The patient was seen this morning. She reports feeling better. She continues to be depressed, rating as 5/10. The patient is focused on discharge. She denies any current suicidal/homicidal ideation and denies hallucinations. REVIEW OF SYSTEMS Constitutional: Negative for weight loss ENT: Negative for stridor Respiratory: Negative for cough or hemoptysis All other systems reviewed and are negative MENTAL STATUS EXAMINATION General Appearance and Behavior: Age appropriate, good hygiene, wearing appropriate clothes. cooperative Cooperation: Cooperative, guarded Psychomotor Behavior: Psychomotor normal Mood: depressed Affect and affective range: congruent with stated mood Thought Process: goal directed Thought Content: reality oriented Speech: Normal tone and pace Suicidal Ideation: Denies Homicidal Ideation: Denies Hallucinations: Denies Delusions: None elicited Impulse Control: Limited Insight and Judgment: Limited insight and fair judgment Memory: Limited Attention: distracted Orientation: a/o x 3 Assessment (1) Major depressive Disorder Current Visit: Yes Status: Acute Treatment Plan Patient admitted for inpatient psychiatric evaluation, medication adjustment and close monitoring The patient's behavior, mood, sleep and appetite will be closely monitored. Patient enrolled in individual and group therapeutic sessions and encouraged to attend. Patient provided with a safe and structured environment. Patient's physical health needs will be addressed by the Hospitalist. Hospitalist Consulted Labs including CBC, CMP, Lipid profile and Hemoglobin A1C levels ordered for baseline reference Social Assessment will be completed and the Waiter/Waitress Club will work with patient and family to ensure a suitable and safe disposition Medication adjustment will be made as clinically indicated Restarted home meds Usual Wellness Confucianism/Preservation: - Start Trazodone 50 mg po QHS & 50 mg po QHS PRN between 10 PM & 2 AM for insomnia - Start Melatonin 5 mg po QHS to promote circadian rhythm The patient agreed on the treatment plan, understood the risk, benefit, alternative treatment, potential consequence of no treatment, and gave informed consent. Estimated days: 5 Post hospital care: primary care provider, psychiatric provider Case staffed with Dr. Barroso Legal Status: Voluntary Reaction to Hospitalization: Accepting Medications and Allergies Medications and Allergies Allergies Allergy/AdvReac Type Severity Reaction Status Date / Time haloperidol [From Haldol] Allergy Hives Verified 07/06/21 09:41 Home Medications Medication Instructions Recorded Confirmed Last Taken Type Levothyroxine [Synthroid] 134 mcg PO QAM 02/15/13 07/07/21 10/20/15 History Active Meds: Active Medications Levothyroxine Sodium (Levothyroxine 112 Mcg Tab) 112 mcg PO DAILY@0600 [facility] Last Admin: 07/09/21 06:05 Dose: 112 mcg Levothyroxine Sodium (Levothyroxine 25 Mcg Tab) 25 mcg PO DAILY@0600 [facility] Last Admin: 07/09/21 06:05 Dose: 25 mcg Nicotine (Nicotine 14 Mg/24 Hr Patch) 14 mg TD QDAY [facility] Quetiapine Fumarate (Quetiapine 25 Mg Tab) 25 mg PO BID [facility] Last Admin: 07/08/21 21:23 Dose: 25 mg Trazodone HCl (Trazodone 50 Mg Tab) 50 mg PO QHS [facility] Last Admin: 07/08/21 21:23 Dose: 50 mg Venlafaxine HCl (Venlafaxine 37.5 Mg Tab) 37.5 mg PO BID [facility] Last Admin: 07/08/21 21:23 Dose: 37.5 mg Results - Results Labs/Vitals: Laboratory Last Values WBC 6.5 K/mm3 (4.5-11.0) 07/07/21 05:20 RBC 3.99 M/mm3 (3.65-5.03) 07/07/21 05:20 Hgb 12.8 gm/dl (10.1-14.3) 07/07/21 05:20 Hct 39.2 % (30.3-42.9) 07/07/21 05:20 MCV 98 fl (79-97) H 07/07/21 05:20 MCH 32 pg (28-32) 07/07/21 05:20 MCHC 33 % (30-34) 07/07/21 05:20 RDW 13.7 % (13.2-15.2) 07/07/21 05:20 Plt Count 240 K/mm3 (140-440) 07/07/21 05:20 Lymph % (Auto) 40.3 % (13.4-35.0) H 07/07/21 05:20 [place] % (Auto) 10.3 % (0.0-7.3) H 07/07/21 05:20 Eos % (Auto) 1.8 % (0.0-4.3) 07/07/21 05:20 Baso % (Auto) 0.4 % (0.0-1.8) 07/07/21 05:20 Lymph # (Auto) 2.6 K/mm3 (1.2-5.4) 07/07/21 05:20 [place] # (Auto) 0.7 K/mm3 (0.0-0.8) 07/07/21 05:20 Eos # (Auto) 0.1 K/mm3 (0.0-0.4) 07/07/21 05:20 Baso # (Auto) 0.0 K/mm3 (0.0-0.1) 07/07/21 05:20 Seg Neutrophils % 47.2 % (40.0-70.0) 07/07/21 05:20 Seg Neutrophils # 3.1 K/mm3 (1.8-7.7) 07/07/21 05:20 Sodium 140 mmol/L (137-145) 07/07/21 05:20 Potassium 3.6 mmol/L (3.6-5.0) 07/07/21 05:20 Chloride 107.3 mmol/L (98-107) H 07/07/21 05:20 Carbon Dioxide 22 mmol/L (22-30) 07/07/21 05:20 Anion Gap 14 mmol/L 07/07/21 05:20 BUN 12 mg/dL (7-17) 07/07/21 05:20 Creatinine 0.8 mg/dL (0.6-1.2) 07/07/21 05:20 Estimated GFR > 60 ml/min 07/07/21 05:20 BUN/Creatinine Ratio 15 % 07/07/21 05:20 Glucose 102 mg/dL (65-100) H 07/07/21 05:20 POC Glucose 96 mg/dL (70-105) 07/07/21 06:20 Hemoglobin A1c 5.7 % (4-6) 07/07/21 05:20 Calcium 8.8 mg/dL (8.4-10.2) 07/07/21 05:20 Total Bilirubin 0.20 mg/dL (0.1-1.2) 07/07/21 05:20 AST 12 units/L (5-40) 07/07/21 05:20 ALT 9 units/L (7-56) 07/07/21 05:20 Alkaline Phosphatase 127 units/L (35-129) 07/07/21 05:20 Total Protein 6.4 g/dL (6.3-8.2) 07/07/21 05:20 Albumin 3.4 g/dL (3.9-5) L 07/07/21 05:20 Albumin/Globulin Ratio 1.1 % 07/07/21 05:20 Triglycerides 146 mg/dL (2-149) 07/07/21 05:20 Cholesterol 164 mg/dL (50-199) 07/07/21 05:20 LDL Cholesterol Direct 114 mg/dL (50-130) 07/07/21 05:20 HDL Cholesterol 30 mg/dL (40-59) L 07/07/21 05:20 Cholesterol/HDL Ratio 5.46 % 07/07/21 05:20 TSH 21.760 mlU/mL (0.270-4.200) H 07/07/21 05:20 Free T4 0.80 ng/dL (0.76-1.46) 07/08/21 05:20 Urine Color Yellow (Yellow) 07/07/21 Unknown Urine Turbidity Hazy (Clear) 07/07/21 Unknown Urine pH 5.0 (5.0-7.0) 07/07/21 Unknown Ur Specific [place] 1.005 (1.003-1.030) 07/07/21 Unknown Urine Protein <15 mg/dl mg/dL (Negative) 07/07/21 Unknown Urine Glucose (UA) Neg mg/dL (Negative) 07/07/21 Unknown Urine Ketones Neg mg/dL (Negative) 07/07/21 Unknown Urine Blood Sm (Negative) 07/07/21 Unknown Urine Nitrite Neg (Negative) 07/07/21 Unknown Urine Bilirubin Neg (Negative) 07/07/21 Unknown Urine Urobilinogen < 2.0 mg/dL (<2.0) 07/07/21 Unknown Ur Leukocyte Esterase Neg (Negative) 07/07/21 Unknown Urine WBC (Auto) 5.0 /HPF (0.0-6.0) 07/07/21 Unknown Urine RBC (Auto) 2.0 /HPF (0.0-6.0) 07/07/21 Unknown U Epithel Cells (Auto) 2.0 /HPF (0-13.0) 07/07/21 Unknown Urine Bacteria (Auto) 3+ /HPF (Negative) 07/07/21 Unknown Urine Mucus Few /HPF 07/07/21 Unknown Hepatitis A IgM Ab Non-reactive (NonReactive) 07/07/21 05:20 Hep Bs Antigen Non-reactive (Negative) 07/07/21 05:20 Hep B Core IgM Ab Non-reactive (NonReactive) 07/07/21 05:20 Hepatitis C Antibody Reactive (NonReactive) A 07/07/21 05:20 Last Vital Signs Temp 99.6 F 07/08/21 19:57 Pulse 64 07/08/21 19:57 Resp 16 07/08/21 19:57 BP 121/81 07/08/21 19:57 Pulse Ox 94 07/08/21 19:57
[2021-07-09] MEDS: NICOTINE 14 MG/24 HR PATCH TD SCH (09:31)
[2021-07-09] MEDS: VENLAFAXINE 37.5 MG TAB PO SCH ×2 (09:31→21:18)
[2021-07-09] MEDS: QUEtiapine 25 MG TAB PO SCH ×2 (09:31→21:18)
[2021-07-09] MEDS ORDERED: MAGNESIUM HYDROXIDE (MOM) ORAL LIQD UDC PO PRN (17:47)
[2021-07-09 20:39] VITALS: BP 132/74
[2021-07-09] MEDS: traZODone 50 MG TAB PO SCH (21:19)
[2021-07-10] MEDS: LEVOTHYROXINE 112 MCG TAB PO SCH (07:13)
[2021-07-10] MEDS: LEVOTHYROXINE 25 MCG TAB PO SCH (07:13)
--- NOTE | 2021-07-10 09:06 | Discharge Summary ---
Providers - Providers Date of Admission: 07/07/21 00:14 Date of discharge: 07/10/21 Attending physician: AMILCAR LEACH MD 07/06/21 20:33 Consult to Physician [CONS] Routine Comment: Consulting Provider: CECI MCKEON Physician Instructions: Reason For Exam: Manage existing medical problems Primary care physician: MANAGER WIRELESS Hospitalization Reason for admission: suicidal ideation Admitting Diagnosis: F33.9 - MAJOR DEPRESSIVE DISORDER, RECURRENT, UNSPECIFIED Hospital course: The patient was provided inpatient psychiatric treatment with safe and supportive environment, group/individual therapy, psychiatric medication, medication adjustment, adverse effect monitor, medical evaluation, medical treatment, social service assessment, social support meeting, placement assessment and psycho-education. The patients mood, cognition, behavior, motivation, compliance to treatment and appreciation on family/social support are improved and stabilized. At the time of discharge, the patient had no suicidal ideas, no homicidal ideas, no aggressive thoughts, no endangering behavior and no debilitating adverse effects. The patient agreed on the treatment plan, understood the risk, benefit, alternative treatment, potential consequence of no treatment, and gave informed consent. Progress note: 07/08/21: The patient was seen this morning. She reports doing well. She continues to be depressed, rating as 6/10. She denies any current suicidal/anne icidal ideation and denies hallucinations. 07/09/21: The patient was seen this morning. She reports feeling better. She continues to be depressed, rating as 5/10. The patient is focused on discharge. She denies any current suicidal/homicidal ideation and denies hallucinations. Disposition: 30 STILL A PATIENT Allergies/Adverse Reactions: Allergies haloperidol [From Haldol] Allergy (Verified 07/06/21 09:41) Hives Vital Signs: Last Vital Signs Temp 99.3 F 07/09/21 19:26 Pulse 58 L 07/09/21 19:26 Resp 17 07/09/21 19:26 BP 132/74 07/09/21 19:26 Pulse Ox 96 07/09/21 19:26 Last Lab: Laboratory Last Values WBC 6.5 K/mm3 (4.5-11.0) 07/07/21 05:20 RBC 3.99 M/mm3 (3.65-5.03) 07/07/21 05:20 Hgb 12.8 gm/dl (10.1-14.3) 07/07/21 05:20 Hct 39.2 % (30.3-42.9) 07/07/21 05:20 MCV 98 fl (79-97) H 07/07/21 05:20 MCH 32 pg (28-32) 07/07/21 05:20 MCHC 33 % (30-34) 07/07/21 05:20 RDW 13.7 % (13.2-15.2) 07/07/21 05:20 Plt Count 240 K/mm3 (140-440) 07/07/21 05:20 Lymph % (Auto) 40.3 % (13.4-35.0) H 07/07/21 05:20 Robeson % (Auto) 10.3 % (0.0-7.3) H 07/07/21 05:20 Eos % (Auto) 1.8 % (0.0-4.3) 07/07/21 05:20 Baso % (Auto) 0.4 % (0.0-1.8) 07/07/21 05:20 Lymph # (Auto) 2.6 K/mm3 (1.2-5.4) 07/07/21 05:20 Robeson # (Auto) 0.7 K/mm3 (0.0-0.8) 07/07/21 05:20 Eos # (Auto) 0.1 K/mm3 (0.0-0.4) 07/07/21 05:20 Baso # (Auto) 0.0 K/mm3 (0.0-0.1) 07/07/21 05:20 Seg Neutrophils % 47.2 % (40.0-70.0) 07/07/21 05:20 Seg Neutrophils # 3.1 K/mm3 (1.8-7.7) 07/07/21 05:20 Sodium 140 mmol/L (137-145) 07/07/21 05:20 Potassium 3.6 mmol/L (3.6-5.0) 07/07/21 05:20 Chloride 107.3 mmol/L (98-107) H 07/07/21 05:20 Carbon Dioxide 22 mmol/L (22-30) 07/07/21 05:20 Anion Gap 14 mmol/L 07/07/21 05:20 BUN 12 mg/dL (7-17) 07/07/21 05:20 Creatinine 0.8 mg/dL (0.6-1.2) 07/07/21 05:20 Estimated GFR > 60 ml/min 07/07/21 05:20 BUN/Creatinine Ratio 15 % 07/07/21 05:20 Glucose 102 mg/dL (65-100) H 07/07/21 05:20 POC Glucose 96 mg/dL (70-105) 07/07/21 06:20 Hemoglobin A1c 5.7 % (4-6) 07/07/21 05:20 Calcium 8.8 mg/dL (8.4-10.2) 07/07/21 05:20 Total Bilirubin 0.20 mg/dL (0.1-1.2) 07/07/21 05:20 AST 12 units/L (5-40) 07/07/21 05:20 ALT 9 units/L (7-56) 07/07/21 05:20 Alkaline Phosphatase 127 units/L (35-129) 07/07/21 05:20 Total Protein 6.4 g/dL (6.3-8.2) 07/07/21 05:20 Albumin 3.4 g/dL (3.9-5) L 07/07/21 05:20 Albumin/Globulin Ratio 1.1 % 07/07/21 05:20 Triglycerides 146 mg/dL (2-149) 07/07/21 05:20 Cholesterol 164 mg/dL (50-199) 07/07/21 05:20 LDL Cholesterol Direct 114 mg/dL (50-130) 07/07/21 05:20 HDL Cholesterol 30 mg/dL (40-59) L 07/07/21 05:20 Cholesterol/HDL Ratio 5.46 % 07/07/21 05:20 TSH 21.760 mlU/mL (0.270-4.200) H 07/07/21 05:20 Free T4 0.80 ng/dL (0.76-1.46) 07/08/21 05:20 Urine Color Yellow (Yellow) 07/07/21 Unknown Urine Turbidity Hazy (Clear) 07/07/21 Unknown Urine pH 5.0 (5.0-7.0) 07/07/21 Unknown Ur Specific Buhler 1.005 (1.003-1.030) 07/07/21 Unknown Urine Protein <15 mg/dl mg/dL (Negative) 07/07/21 Unknown Urine Glucose (UA) Neg mg/dL (Negative) 07/07/21 Unknown Urine Ketones Neg mg/dL (Negative) 07/07/21 Unknown Urine Blood Sm (Negative) 07/07/21 Unknown Urine Nitrite Neg (Negative) 07/07/21 Unknown Urine Bilirubin Neg (Negative) 07/07/21 Unknown Urine Urobilinogen < 2.0 mg/dL (<2.0) 07/07/21 Unknown Ur Leukocyte Esterase Neg (Negative) 07/07/21 Unknown Urine WBC (Auto) 5.0 /HPF (0.0-6.0) 07/07/21 Unknown Urine RBC (Auto) 2.0 /HPF (0.0-6.0) 07/07/21 Unknown U Epithel Cells (Auto) 2.0 /HPF (0-13.0) 07/07/21 Unknown Urine Bacteria (Auto) 3+ /HPF (Negative) 07/07/21 Unknown Urine Mucus Few /HPF 07/07/21 Unknown Hepatitis A IgM Ab Non-reactive (NonReactive) 07/07/21 05:20 Hep Bs Antigen Non-reactive (Negative) 07/07/21 05:20 Hep B Core IgM Ab Non-reactive (NonReactive) 07/07/21 05:20 Hepatitis C Antibody Reactive (NonReactive) A 07/07/21 05:20 Core Measure Documentation - Palliative Care Palliative Care/ Comfort Measures: Not Applicable - Core Measures Any of the following diagnoses?: none - VTE Discharge Requirements Deep Vein Thrombosis/Pulmonary Embolism Present on Admission: No Exam - Constitutional Vitals: Temp Pulse Resp BP Pulse Ox 99.3 F 58 L 17 132/74 96 07/09/21 19:26 07/09/21 19:26 07/09/21 19:26 07/09/21 19:26 07/09/21 19:26 Plan Activity: advance as tolerated Weight Bearing Status: Weight Bear as Tolerated Care Plan Goals: Maintain good and stable mental health. Plan of Treatment: The patient should be compliant with medications, not to use drugs and not to drink alcohol.The patient understands that if suicidal ideas, homicidal ideas, or any endangering thoughts/behavior arise, they should immediately seek for emergent assistance including but not limited to crisis hot line and emergency room. Follow up with outpatient Psychiatrist and PCP within 7 - 14 days of discharge. Follow up with: PRIMARY CARE,MD [Primary Care Provider] - 7 Days Prescriptions: traZODone [Desyrel] 50 mg PO QHS PRN 30 Days #30 tablet PRN Reason: Insomnia Venlafaxine [Effexor 37.5mg tab] 37.5 mg PO BID 30 Days #60 tablet QUEtiapine [SEROquel] 25 mg PO BID 30 Days #60 tablet
[2021-07-10] MEDS: VENLAFAXINE 37.5 MG TAB PO SCH (10:13)
[2021-07-10] MEDS: QUEtiapine 25 MG TAB PO SCH (10:13)
[2021-07-10] MEDS: NICOTINE 14 MG/24 HR PATCH TD SCH (10:13)
== END 2021-07-10 16:00 | disposition home or self-care (01) | DRG 885 ==
LOC: 3A 19:12 → UNDOADMIN 19:12 → 5A 07-07 00:14
PROVIDERS: ADMIT Psychiatry & Neurology Psychiatry; ATTEND Psychiatry & Neurology Psychiatry
DX: F33.9 Major depressive disorder, recurrent, unspecified (principal); I11.0 Hypertensive heart disease with heart failure; I50.9 Heart failure, unspecified; Z88.8 Allergy status to other drugs, medicaments and biological substances; Z20.822 Contact with and (suspected) exposure to COVID-19; Z86.73 Personal history of transient ischemic attack (TIA), and cerebral infarction without residual deficits
CPT/HCPCS: 36415; 80053; 80061; 80074; 80307; 80320; 81001; 82962; 83036; 84439; 84443; 85025; 93005; 93010; 99284; 99285; G0378; G0480; U0003

== ENCOUNTER 2021-08-13 18:39 | Emergency (ER) | payer MEDICAID ==
[2021-08-13 18:43] VITALS: BP 124/69
[2021-08-13 19:32] LABS: Bacteria,Urine 1+ /HPF (Negative); Bilirubin,Urine NEG (Negative); Blood,Urine SM (Negative); Color,Urine Yellow (Yellow); Hyaline Casts,Urine 1 /LPF; Mucus,Urine FEW /HPF; Protein,Urine <15 mg/dL mg/dL (Negative); Urobilinogen,Urine < 2.0 mg/dL (<2.0)
== END 2021-08-13 21:49 | disposition left against medical advice (07) ==
LOC: ED 18:39
DX: R10.9 Unspecified abdominal pain (principal); Z53.21 Procedure and treatment not carried out due to patient leaving prior to being seen by health care provider
CPT/HCPCS: 81001